=== PATIENT | female | born 1950 | race Caucasian/White ===

== ENCOUNTER 2019-10-30 09:36 | Outpatient (CLI) | payer MEDICARE, SELFPAY ==
--- NOTE | 2019-10-30 09:54 | FL_ITS ---
WS: [id number] Barium swallow and esophagram, 10/30/2019 Clinical Data: ASPIRATION INTO LOWER RESPIRATORY TRACT Comparison: None. Fluoroscopy time: 1.3 minutes. Findings: The patient swallowed the thick-thin barium, and it flowed through the hypopharynx without hesitation . There was osteoarthritic change at C5-C6 impinging onto the posterior hypopharyngeal surface. There is also minimal cricopharyngeal achalasia, but no aspiration or penetration occurred. The barium ent ered the esophagus and there was slow movement throughout. There was a small hiatal hernia with minim al reflux. No masses, polyps, stricture, ulcer or erosion could be seen. FL/FL barium swallow [id number] Impression: 1. Negative for aspiration or penetration. 2. Osteoarthritic change impinges on the posterior hypopharynx at C5-C6. 3. Minimal cricopharyngeal achalasia present. 4. Slow passage of barium from the hypopharynx through the esophagus. 5. Small hiatal hernia with minimal reflux.
== END 2019-10-30 09:37 | disposition home or self-care (01) ==
LOC: RAD 09:43
PROVIDERS: Family Provider Family Medicine; PCP Family Medicine; Visit Provider Internal Medicine Critical Care Medicine
DX: T17.800A Unspecified foreign body in other parts of respiratory tract causing asphyxiation, initial encounter (principal); X58.XXXA Exposure to other specified factors, initial encounter; K44.9 Diaphragmatic hernia without obstruction or gangrene
CPT/HCPCS: 74220

== ENCOUNTER → 2019-11-08 08:40 | Outpatient (BNVA) | payer MEDICARE, SELFPAY | PROVIDERS: Family Provider Family Medicine; PCP Nurse Practitioner Family; Referring Provider Nurse Practitioner Family; Visit Provider Specialist | DX: G25.0 Essential tremor (principal); F41.9 Anxiety disorder, unspecified; F32.9 Major depressive disorder, single episode, unspecified; F45.8 Other somatoform disorders | CPT/HCPCS: 99204 ==

== ENCOUNTER → 2019-11-20 13:39 | Outpatient (BNVA) | payer MEDICARE, SELFPAY | PROVIDERS: Family Provider Family Medicine; PCP Nurse Practitioner Family; Visit Provider Nurse Practitioner | DX: M54.5 Low back pain (principal); M53.3 Sacrococcygeal disorders, not elsewhere classified; Z79.891 Long term (current) use of opiate analgesic | CPT/HCPCS: 99214 ==

== ENCOUNTER 2019-11-26 11:00 | Outpatient (CLI) | payer MEDICARE, SELFPAY | END 2019-11-26 11:01 | disposition home or self-care (01) | LOC: SLEEP 11-28 09:21 | PROVIDERS: Family Provider Family Medicine; PCP Nurse Practitioner Family; Visit Provider Internal Medicine Critical Care Medicine | DX: J44.9 Chronic obstructive pulmonary disease, unspecified (principal) | CPT/HCPCS: 94762 ==

== ENCOUNTER 2019-11-26 13:02 | Outpatient (CLI) | payer MEDICARE, SELFPAY | END 2019-11-26 13:03 | disposition home or self-care (01) | PROVIDERS: Family Provider Family Medicine; PCP Nurse Practitioner Family; Visit Provider Internal Medicine Critical Care Medicine | DX: J44.9 Chronic obstructive pulmonary disease, unspecified (principal) | CPT/HCPCS: 94060; 94726; 94729; 94762; J7611 ==

== ENCOUNTER → 2020-03-05 13:50 | Outpatient (BNVA) | payer MEDICARE, SELFPAY | PROVIDERS: Family Provider Family Medicine; PCP Nurse Practitioner Family; Visit Provider Anesthesiology | DX: M54.41 Lumbago with sciatica, right side (principal); M54.42 Lumbago with sciatica, left side; F17.210 Nicotine dependence, cigarettes, uncomplicated; Z79.891 Long term (current) use of opiate analgesic; Z71.6 Tobacco abuse counseling | CPT/HCPCS: 99214 ==

== ENCOUNTER 2020-03-18 13:35 | Outpatient (CLI) | payer MEDICARE, SELFPAY ==
[2020-03-18 14:12] LABS: Basophils # 0.1 10^3/uL (0.0-0.1); Basophils % 0.6 %; Eosinophils # 0.3 10^3/uL (0.0-0.8); Hematocrit 42.5 % (37.0-47.0); Hemoglobin 12.8 g/dL (11.5-15.3); Lymphocytes # 2.7 10^3/uL (0.8-4.8); Lymphocytes % 24.8 %; Mean Corpuscular HGB Conc 30.1 g/dL (30.0-36.0); Mean Corpuscular Hemoglobin 27.8 pg (28.0-34.0); Mean Corpuscular Volume 92.4 fL (81-99); Monocytes # 1.2 10^3/uL (0.2-0.9); Monocytes % 11.2 %; Neutrophils # 6.3 10^3/uL (1.8-7.7); Neutrophils % 58.7 %; Nucleated Red Blood Cells % 0 %; Platelet Count 209 10^3/cmm (130-400); Red Cell Distribution Width 15.1 % (12.1-15.1); White Blood Count 10.8 10^3/uL (4.0-10.0)
[2020-03-18 14:27] LABS: Alanine Aminotransferase 19 U/L (0-33); Alkaline Phosphatase 79 IU/L (35-105); Aspartate Amino Transferase 18 U/L (0-32); Blood Urea Nitrogen 10 mg/dL (8-23); Calcium 9.3 mg/dL (8.5-10.5); Carbon Dioxide 32 mmol/L (22-29); Chloride 97 mmol/L (98-107); Globulin 2.6 g/dL (1.3-4.6); Glomerular Filtration Rate 122.3 mL/min (90-130); Glucose 83 mg/dL (65-115); Lactate Dehydrogenase 230 U/L (135-214); Osmolality Calculated 281 mOsm/kg (285-295); Sodium 138 mmol/L (136-145); Total Bilirubin 0.4 mg/dL (0.15-1.2); Total Protein 6.6 g/dL (6.6-8.7)
--- NOTE | 2020-03-18 17:15 | ONC FU_ITS ---
Dr. Carlson follow up note Patient: Sweta Fitzpatrick Unit #: [id number]: [id number] Dicatated By: Denis Carlson M.D.Date of Visit:Mar 18, 2020 Onc Med Follow-up/Prog Note History of Present Illness: Mrs. 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 As per patient her white blood count stay up mildly that led to special blood test which confirmed CLL. At the time of diagnosis on 04/04/2019 her CBC showed white blood count 10.8 hemoglobin 14.2 crit 44.0 platelets 259,000 neutrophil 65.7% lymphocytes 21.4%, patient also had serum light chain assay done on 04/04/2019 which showed free Light chain 2.06 normal being less than 1.94 and free lambda/kappa ratio 1.08, which is within normal range Prognostic profiling showed beta-2 microglobulin 2.01 IGVH mutated e.g. favorable ZAP/CD19 less than 10% e.g. favorable She still smokes about 1 pack a day Serum protein electrophoresis done on 04/04/2019 showed decreased albumin, slight restriction of protein migration in gamma region recommended immuno fixation electrophoresis Patient denies any night sweats, denies any peripheral lymphadenopathy, denies any weight loss but she has history of recurrent pulmonary infections, requiring hospitalization in the past. Came for follow-up, denies any specific complaints, no night sweats, no fever no chills, no weight loss, no peripheral lymphadenopathy, no abdominal fullness Medications: Advair Diskus 1 Puff(s) (of 500-50 mcg/dose) Aerosol Powder, Breath Activated Inhalation b.i.d., Atorvastatin Calcium 2 Tablet (of 40 mg) Oral daily, Atrovent 1 Puff(s) (of 0.03 %) Solution Nasal b.i.d., Breo Ellipta 1 Puff(s) (of 100-25 mcg/inh) Aerosol Powder, Breath Activated Inhalation daily, Breo Ellipta 1 (100-25 mcg/inh) Aerosol Powder, Breath Activated Inhalation PRN, Flonase 1 (50 mcg/act) Suspension Nasal PRN, Indapamide 1 Tablet (of 1.25 mg) Oral daily, Lyrica 1 Capsule (of 150 mg) Oral b.i.d., Nicotrol NS 1 - 2 spray(s) (of 10 mg/mL) Solution Nasal q 1 hour, Omeprazole 1 Capsule (of 20 mg) Capsule Delayed Release Oral daily, oxyCODONE HCl 1 Tablet (of 15 mg) Oral q 8 hours PRN, Primidone 1 Tablet (of 50 mg) Oral daily, Spiriva HandiHaler 1 (18 mcg) Capsule Inhalation daily, Zoloft 1 Tablet (of 50 mg) Oral b.i.d. Allergies: Aspirin, Codeine Sulfate, and Penicillins. Review of Systems: Constitutional - Appetite is good and weight is stable. No fever, chills, hot flashes, or night sweats. Energy is fair, ENMT - No sinus congestion/drainage. No mouth sores. No sore throat or difficulty swallowing, Hematologic/Lymphatic - Pt reports easy bruising, Respiratory - Positive for shortness of breath, Pt is on oxygen. No cough. No pleuritic pain or hemoptysis, Cardiovascular - No angina pain. No palpitations, Gastrointestinal - No nausea or vomiting. No heartburn or acid reflux. No diarrhea or constipation. No blood in the stool or black stools, Genitourinary (F) - No dysuria or hematuria. No urinary frequency. No urgency. Positive for incontinence, Musculoskeletal - Positive for joint pain, Neurologic - No headache or dizziness. No numbness/paresthesias or other focal neurologic symptoms, Psychiatric - Positive for anxiety and stress. Vital Signs: Performed on Mar 18, 2020 16:09 Height - 65.00 in Weight - 168.0 lbs (HIGH) BSA - 1.84 sq.m BMI - 27.96 Temperature - 97.3 F (LOW) Pulse - 82 /min Respiration - 24 /min BP - 140/64 mm(hg) O2 Sat - 96 % Pain - 8 Performance Status: 0 - Fully active, able to carry on all predisease activities without restrictions. (ECOG) Physical Examination: ENMT - No mouth sores, no thrush, no jaundice, Hematologic/Lymphatic - No peripheral lymphadenopathy, Respiratory - Lungs are clear, Cardiovascular - Regular rate and rhythm of heart, Abdomen - Soft, bowel sounds present, no organomegaly, Extremities - No visible edema or rash. Lab/Imaging: Most recent lab results are not available for this patient. 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 absolute lymphocyte count 2300 ?Abnormal serum protein electrophoresis COPD, on home oxygen Recurrent pulmonary infection requiring hospitalization on at least 3 occasions in the last one year Chronic smoking Plan: Discussed with patient regarding her labs white blood count 10.8 hemoglobin 12.8 hematocrit 42.5 platelets 209,000 CMP within normal limits LDH 230 Clinically, patient is doing well with no B symptoms, lab work-up within normal range with mild leukocytosis/lymphocytosis. On exam no evidence of peripheral lymphadenopathy or organomegaly. We will continue to monitor, she will return to clinic in 6 months with CBC CMP and LDH Signed By: Denis Carlson M.D. <<Signature on File>>
== END 2020-03-18 13:36 | disposition home or self-care (01) ==
LOC: ONCMED 13:38
PROVIDERS: PCP Nurse Practitioner Family; Visit Provider Internal Medicine Hematology & Oncology
DX: C91.10 Chronic lymphocytic leukemia of B-cell type not having achieved remission (principal); J44.9 Chronic obstructive pulmonary disease, unspecified; F17.200 Nicotine dependence, unspecified, uncomplicated; Z99.81 Dependence on supplemental oxygen; Z86.19 Personal history of other infectious and parasitic diseases
CPT/HCPCS: 80053; 83615; 85025; G0463

== ENCOUNTER 2020-03-19 20:00 | Outpatient (CLI) | payer MEDICARE, SELFPAY | END 2020-03-19 20:01 | disposition home or self-care (01) | LOC: SLEEP 03-20 08:21 | PROVIDERS: PCP Nurse Practitioner Family; Visit Provider Internal Medicine Critical Care Medicine | DX: G47.33 Obstructive sleep apnea (adult) (pediatric) (principal) | CPT/HCPCS: 95810 ==

== ENCOUNTER → 2020-05-21 13:18 | Outpatient (BNVA) | payer MEDICARE, SELFPAY | PROVIDERS: Family Provider Family Medicine; PCP Nurse Practitioner Family; Visit Provider Anesthesiology | DX: M54.42 Lumbago with sciatica, left side (principal); M54.41 Lumbago with sciatica, right side; Z98.1 Arthrodesis status; Z79.891 Long term (current) use of opiate analgesic | CPT/HCPCS: 99213; 99214 ==

== ENCOUNTER 2020-05-29 13:49 | Outpatient (CLI) | payer MEDICARE, SELFPAY ==
--- NOTE | 2020-05-29 14:15 | CT_ITS ---
WS: [id number] CT LUMBAR SPINE TECHNIQUE: Noncontrast CT of the lumbar spine with coronal and sagittal reformatted images. CLINICAL INFORMATION: back pain and prior fusion COMPARISON: CT 7 14,019 and myelogram 1 19,018 DLP: 1610.[address] scans at [facility] use at least one of these dose optimization techniques: automat ed exposure control; mA and/or kV adjustment per patient size (includes targeted exams where dose is matched to clinical indication); or iterative reconstruction. FINDINGS: Mild S-shaped lumbar curve. Anterior wedging with vertebroplasty changes T12. Prior postoperative marion nges pedicle screw fixation L4-5 with interbody fusion grafts. No evidence of hardware loosening. Vac uum disc phenomenon worse L5-S1. Vacuum disc phenomenon L1-2, L2-L3 and L3-L4. No acute appearing com pression fractures. No high-grade central canal stenosis. Alignment appears unchanged since 2019 L1-L2: Normal. L2-L3: Slight retrolisthesis L2 on L3. Mild central canal stenosis. Narrowing of the subarticular rec ess bilaterally. Mild bilateral foraminal narrowing. Mild facet arthropathy. L3-L4: Mild disc osteophytic ridging. Mild central canal stenosis. Moderate facet arthropathy. Mild l eft and no significant right foraminal narrowing. Impingement on the right subarticular recess. L4-L5: Postoperative changes pedicle screw fixation. Interbody fusion. Narrowing of the right subarti cular recess. Mild right and no significant left foraminal narrowing. Mild central canal stenosis. Pr ior left hemilaminectomy. Moderate facet arthropathy. L5-S1: Mild disc bulge with endplate ridging. Slight contact of the left S1 nerve root. Spinal canal is patent. Foramen are patent. Moderate facet arthropathy. Adrenal glands are normal. CT/CT lumbar spine wo con* [id number] IMPRESSION: 1. Mild lumbar curve. No acute compression. No high-grade central canal stenos is. 2. Chronic compression T12 vertebral body with vertebroplasty changes and ante rior wedging is unchanged. 3. Prior postoperative changes pedicle screw fixation L4-5 with interbody fusi on. No evidence of hardware loosening. 4. Mild central canal stenosis L2-L3, L3-L4 and L4-L5. 5. Mild bony foraminal narrowing worse at bilateral L2-3, bilateral L3-4 and r ight L4-5. Narrowing of the right L4-5 subarticular recess. 6. Prior left laminectomy L4-5. 7. Mild disc bulge L5-S1 with slight contact of the left S1 nerve root. 8. Moderate facet arthropathy L5-S1.
== END 2020-05-29 13:50 | disposition home or self-care (01) ==
LOC: RADWPI 13:55
PROVIDERS: Family Provider Nurse Practitioner Family; PCP Nurse Practitioner Family; Visit Provider Anesthesiology
DX: Z98.1 Arthrodesis status (principal); S22.080A Wedge compression fracture of T11-T12 vertebra, initial encounter for closed fracture; X58.XXXA Exposure to other specified factors, initial encounter; M48.061 Spinal stenosis, lumbar region without neurogenic claudication; M51.26 Other intervertebral disc displacement, lumbar region; M47.817 Spondylosis without myelopathy or radiculopathy, lumbosacral region; M96.1 Postlaminectomy syndrome, not elsewhere classified
CPT/HCPCS: 72131

== ENCOUNTER → 2020-06-16 14:18 | Outpatient (BNVA) | payer MEDICARE, SELFPAY | PROVIDERS: Family Provider Nurse Practitioner Family; PCP Nurse Practitioner Family; Visit Provider Specialist | DX: G25.0 Essential tremor (principal); F41.9 Anxiety disorder, unspecified; F32.9 Major depressive disorder, single episode, unspecified; J44.9 Chronic obstructive pulmonary disease, unspecified; Z98.1 Arthrodesis status; Z87.891 Personal history of nicotine dependence | CPT/HCPCS: 99214 ==

== ENCOUNTER → 2020-07-18 08:46 | Outpatient (BNVA) | payer MEDICARE, SELFPAY | PROVIDERS: Family Provider Family Medicine; PCP Nurse Practitioner Family; Visit Provider Anesthesiology | DX: M54.5 Low back pain (principal); Z98.1 Arthrodesis status; Z79.891 Long term (current) use of opiate analgesic | CPT/HCPCS: 99212; 99214 ==

== ENCOUNTER 2020-09-29 12:26 | Outpatient (CLI) | payer MEDICARE, SELFPAY ==
[2020-09-29 14:19] LABS: Basophils # 0.1 10^3/uL (0.0-0.1); Basophils % 0.6 %; Eosinophils % 0.2 %; Hematocrit 39.7 % (37.0-47.0); Hemoglobin 11.6 g/dL (11.5-15.3); Lymphocytes # 2.9 10^3/uL (0.8-4.8); Lymphocytes % 15.3 %; Mean Corpuscular HGB Conc 29.2 g/dL (30.0-36.0); Mean Corpuscular Hemoglobin 26.5 pg (28.0-34.0); Mean Corpuscular Volume 90.8 fL (81-99); Mean Platelet Volume 11.9 fL (7.4-10.4); Monocytes # 1.1 10^3/uL (0.2-0.9); Monocytes % 5.7 %; Neutrophils % 72.7 %; Nucleated Red Blood Cells % 0 %; Platelet Count 230 10^3/cmm (130-400); Red Blood Count 4.37 10^6/uL (4.1-5.3); Red Cell Distribution Width 15.9 % (12.1-15.1); White Blood Count 19.1 10^3/uL (4.0-10.0)
[2020-09-29 14:21] LABS: Alanine Aminotransferase 16 U/L (0-33); Albumin Level 3.4 g/dL (3.5-5.2); Alkaline Phosphatase 98 IU/L (35-105); Anion Gap 11.7 (5-19); Aspartate Amino Transferase 18 U/L (0-32); Blood Urea Nitrogen 14 mg/dL (8-23); Calcium 8.9 mg/dL (8.5-10.5); Carbon Dioxide 31 mmol/L (22-29); Chloride 99 mmol/L (98-107); Globulin 2.9 g/dL (1.3-4.6); Glomerular Filtration Rate 99.1 mL/min (90-130); Glucose 133 mg/dL (65-115); Lactate Dehydrogenase 207 U/L (135-214); Osmolality Calculated 286 mOsm/kg (285-295); Potassium 4.7 mmol/L (3.5-5.1); Sodium 137 mmol/L (136-145); Total Bilirubin 0.3 mg/dL (0.15-1.2); Total Protein 6.3 g/dL (6.6-8.7)
[2020-09-29 14:47] LABS: Slide Review Slide Review Perform
--- NOTE | 2020-09-29 17:13 | ONC FU_ITS ---
Dr. Carlson follow up note Patient: Sweta Fitzpatrick Unit #: [id number]: 1950 Dicatated By: Denis Carlson M.D.Date of Visit:Sep 29, 2020 Onc Med Follow-up/Prog Note History of Present Illness: Mrs. 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 As per patient her white blood count stay up mildly that led to special blood test which confirmed CLL. At the time of diagnosis on 04/04/2019 her CBC showed white blood count 10.8 hemoglobin 14.2 crit 44.0 platelets 259,000 neutrophil 65.7% lymphocytes 21.4%, patient also had serum light chain assay done on 04/04/2019 which showed free Light chain 2.06 normal being less than 1.94 and free lambda/kappa ratio 1.08, which is within normal range Prognostic profiling showed beta-2 microglobulin 2.01 IGVH mutated e.g. favorable ZAP/CD19 less than 10% e.g. favorable She still smokes about 1 pack a day Serum protein electrophoresis done on 04/04/2019 showed decreased albumin, slight restriction of protein migration in gamma region recommended immuno fixation electrophoresis Patient denies any night sweats, denies any peripheral lymphadenopathy, denies any weight loss but she has history of recurrent pulmonary infections, requiring hospitalization in the past. Came for follow-up, denies any specific complaints, no night sweats, no recurrent fever, no weight loss, no peripheral lymphadenopathy, no abdominal fullness, patient has underlying COPD for which she is on home oxygen and still smoking although trying to quit. Denies any jaundice denies any melena or hematochezia Medications: Advair Diskus 1 Puff(s) (of 500-50 mcg/dose) Aerosol Powder, Breath Activated Inhalation b.i.d., Atorvastatin Calcium 2 Tablet (of 40 mg) Oral daily, Atrovent 1 Puff(s) (of 0.03 %) Solution Nasal b.i.d., Breo Ellipta 1 Puff(s) (of 100-25 mcg/inh) Aerosol Powder, Breath Activated Inhalation daily, Breo Ellipta 1 (100-25 mcg/inh) Aerosol Powder, Breath Activated Inhalation PRN, Doxycycline Hyclate (100 mg) Capsule Oral b.i.d. for 14 days, Flonase 1 (50 mcg/act) Suspension Nasal PRN, Indapamide 1 Tablet (of 1.25 mg) Oral daily, Lyrica 1 Capsule (of 150 mg) Oral b.i.d., Nicotrol NS 1 - 2 spray(s) (of 10 mg/mL) Solution Nasal q 1 hour, Omeprazole 1 Capsule (of 20 mg) Capsule Delayed Release Oral daily, oxyCODONE HCl 1 Tablet (of 15 mg) Oral q 8 hours PRN, Primidone 1 Tablet (of 50 mg) Oral daily, Spiriva HandiHaler 1 (18 mcg) Capsule Inhalation daily, Zoloft 1 Tablet (of 50 mg) Oral b.i.d. Allergies: Aspirin, Codeine Sulfate, and Penicillins. Review of Systems: Constitutional - Appetite is good and weight is stable. No fever, chills, hot flashes, or night sweats. Energy is fair, ENMT - No sinus congestion/drainage. No mouth sores. No sore throat or difficulty swallowing, Hematologic/Lymphatic - Pt reports easy bruising, Respiratory - Positive for shortness of breath, Pt is on oxygen. No cough. No pleuritic pain or hemoptysis, Cardiovascular - No angina pain. No palpitations, Gastrointestinal - No nausea or vomiting. No heartburn or acid reflux. No diarrhea or constipation. No blood in the stool or black stools, Genitourinary (F) - No dysuria or hematuria. No urinary frequency. No urgency. Positive for incontinence, Musculoskeletal - Positive for joint pain, Neurologic - No headache or dizziness. No numbness/paresthesias or other focal neurologic symptoms, Psychiatric - Positive for anxiety and stress. Vital Signs: Vitals are not available for this patient. Performance Status: 1 - No physically strenuous activity, but ambulatory and able to carry out light or sedentary work (e.g. office work, light house work). (ECOG) Physical Examination: ENMT - No mouth sores, no jaundice, no thrush, Respiratory - Poor air entry, bilateral mild wheezing, Cardiovascular - Regular rate and rhythm of heart, Abdomen - Soft, bowel sounds present, Extremities - No visible edema. Lab/Imaging: Most recent lab results are not available for this patient. 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 absolute lymphocyte count 2300 ?Abnormal serum protein electrophoresis COPD, on home oxygen Recurrent pulmonary infection requiring hospitalization on at least 3 occasions in the last one year Chronic smoking Plan: Discussed with patient regarding her labs white blood count 19.1 hemoglobin 11.6 compared to 12.8 g on March 18, 2020, platelets 230,000 CMP within normal limits except glucose 133 and LDH is 207 Clinically, patient doing well with no B symptoms suggestive of disease progression, no peripheral lymphadenopathy. Lab work-up leukocytosis/neutrophilia but stable lymphocytes count so leukocytosis could be due to smoking or underlying bronchitis or subacute clinical infection but patient denies any fever denies any sore throat or dysuria. As far as CLL is concerned, there is no evidence of disease progression although CBC shows increased total white blood cell but mainly neutrophils rather than lymphocytes. Patient was advised to quit smoking and was offered any assistance she may need, patient is trying. And patient was advised in case she has any evidence of fever or any new symptoms she need to call us or her PMD for evaluation otherwise she will return to clinic in 6 months with CBC CMP and LDH Signed By: Denis Carlson M.D. <<Signature on File>>
== END 2020-09-29 12:27 | disposition home or self-care (01) ==
LOC: ONCMED 12:29
PROVIDERS: PCP Nurse Practitioner Family; Visit Provider Internal Medicine Hematology & Oncology
DX: C91.10 Chronic lymphocytic leukemia of B-cell type not having achieved remission (principal); J44.9 Chronic obstructive pulmonary disease, unspecified; F17.200 Nicotine dependence, unspecified, uncomplicated; Z99.81 Dependence on supplemental oxygen; Z86.19 Personal history of other infectious and parasitic diseases
CPT/HCPCS: 36415; 80053; 83615; 85025; G0463

== ENCOUNTER → 2020-10-03 12:47 | Outpatient (BNVA) | payer MEDICARE, SELFPAY | PROVIDERS: PCP Nurse Practitioner Family; Visit Provider Nurse Practitioner | DX: M47.816 Spondylosis without myelopathy or radiculopathy, lumbar region (principal); M17.0 Bilateral primary osteoarthritis of knee; F17.200 Nicotine dependence, unspecified, uncomplicated; Z79.891 Long term (current) use of opiate analgesic | CPT/HCPCS: 99215 ==

== ENCOUNTER → 2020-11-28 12:49 | Outpatient (BNVA) | payer MEDICARE, SELFPAY | PROVIDERS: PCP Nurse Practitioner Family; Visit Provider Nurse Practitioner | DX: M47.816 Spondylosis without myelopathy or radiculopathy, lumbar region (principal); M17.11 Unilateral primary osteoarthritis, right knee; Z98.1 Arthrodesis status; Z79.891 Long term (current) use of opiate analgesic | CPT/HCPCS: 99213 ==

== ENCOUNTER → 2020-12-19 13:36 | Outpatient (BNVA) | payer MEDICARE, SELFPAY | PROVIDERS: PCP Nurse Practitioner Family; Visit Provider Surgery | DX: K92.1 Melena (principal); Z20.822 Contact with and (suspected) exposure to COVID-19 | CPT/HCPCS: 87635 ==

== ENCOUNTER 2020-12-24 06:37 | Day surgery (SDC) | payer MEDICARE, SELFPAY ==
[2020-12-22 12:54] VITALS: BMI 39.6
--- NOTE | 2020-12-24 06:49 | ANES.PREANE2 ---
Pre-Anesthetic Assessment Pre-Anesthetic Assessment: Height/Weight: Height 1.65 m Weight 107.955 kg Preop Diagnosis: blood in stool Proposed Procedure: Operation Date: 12/24/20 08:15 Proposed Procedures p Colonoscopy 58575 K92.1(Not Applicable) - Danny Juan MD Familial anesthetic complications: none Was Beta Edgar taken within 24 hours: N/A Was Clonidine taken within 24 hours: N/A Last intake: >8 hrs Social: Comment: former smoker Exam: Pre-Anes Outpt Exam: alert, oriented x 3, clear to auscultation bilaterally and regular rate & rhythm Airway: Cervical ROM: WNL MP: 4 Dentition: False Pulmonary: Pulmonary: COPD (5 L NC) Metabolic: Metabolic: Morbid obesity Musc/skel: Musc/skel: Lower Back Pain Neuropsych: Neuropsych: Anxiety (causes O2 desaturations) and 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) Anesthetic Plan: ASA status: 4 Anesthesia: MAC Risk of > 500 ml blood loss (7ml/kg in children): No PFSH Anesthesia PFSH: Medical History Acute cystitis without hematuria Bulging lumbar disc COPD (chronic obstructive pulmonary disease) Encounter for long-term opiate analgesic use Fibromyalgia Hip pain, right Hypermobility of urethra Low back pain of over 3 months duration Lumbar post-laminectomy syndrome Opioid contract exists Sacro-iliac pain Spinal stenosis of lumbar region with radiculopathy Spondylosis without myelopathy or radiculopathy, lumbar region Traumatic compression fracture of twelfth thoracic vertebra Urinary bladder incontinence Surgical History H/O eye surgery Macular Pucker History of appendectomy History of hysterectomy History of lumbar fusion History of lumbar fusion Hx of cataract surgery Hx of kyphoplasty w/Dr Martinez 2015 T 12 Family History Mother , Age 81 Heart disease Father , In his 80's [employer] to Bone Cancer Cancer Other CAD (coronary artery disease) Stroke Denies family history of Diabetes Hypertension Social History Smoking and tobacco status: former smoker Quit status (tobacco): has quit using tobacco Year quit tobacco: 2019 - PPD x 56 Years Second hand smoke exposure: No Alcohol intake: never Lives independently: Yes Household members: family Marital status: / Current occupational status: retired History of recent travel: No Current gender identity: Female Data Anesthesia Cardiac Studies: No Data to Display
[2020-12-24 07:25] VITALS: BP 155/79; PULSE 88; RESP 18; TEMP 36.7; O2SAT 93
[2020-12-24] MEDS: sodium chloride 0.9% 1,000 ML 30 ML IV (07:31)
[2020-12-24 07:45] VITALS: PULSE 79; RESP 16; O2SAT 96
[2020-12-24] MEDS: ipratropium-albuterol 3 mL Neb INHALATION (07:50)
[2020-12-24 07:54] VITALS: PULSE 76
--- NOTE | 2020-12-24 08:34 | W.PM.OPSUD ---
Surgery/Procedure H&P Update DATE OF PROCEDURE: December 24, 2020 DATE H&P PERFORMED: 12/04/20 H&P UPDATE INFORMATION: I have reviewed H&P completed within last 30 days, I have examined patient prior to procedure and No changes to prior documentation PREOP DIAGNOSIS: Bleeding per rectum PRIMARY INDICATION FOR PROCEDURE: The same PLANNED PROCEDURE: Operation Date: 12/24/20 08:15 Proposed Procedures p Colonoscopy 65142 K92.1(Not Applicable) - Danny Juan MD
[2020-12-24 10:02] VITALS: BP 164/100; PULSE 78; RESP 20; TEMP 36.3; O2SAT 96
--- NOTE | 2020-12-24 10:06 | ANE.PACU2 ---
Inpatient post-anesthesia follow up: Airway intact: Yes Vital signs: Temperature 97.4 F Pulse Rate 78 Respiratory Rate 20 Blood Pressure 164/100 Pulse Oximetry 96 Oxygen Delivery Me thod Nasal Cannula Oxygen Flow Rate 5 Fraction of Inspir ed Oxygen Hydration adequate: Yes Nausea and vomiting: No Pain level: 1 Mental status: Baseline
[2020-12-24 10:19] VITALS: BP 149/94; PULSE 74; RESP 18; O2SAT 96
== END 2020-12-24 10:25 | disposition home or self-care (01) ==
PROVIDERS: PCP Nurse Practitioner Family; Visit Provider Surgery
PROC: 0DJD8ZZ Inspection of Lower Intestinal Tract, Via Natural or Artificial Opening Endoscopic (ICD-10-PCS; CPT 45378; principal; 2020-12-24 08:15)
DX: K92.1 Melena (principal); D12.5 Benign neoplasm of sigmoid colon; Z87.891 Personal history of nicotine dependence; J44.9 Chronic obstructive pulmonary disease, unspecified; Z99.81 Dependence on supplemental oxygen; E66.01 Morbid (severe) obesity due to excess calories; Z68.39 Body mass index [BMI] 39.0-39.9, adult; F41.9 Anxiety disorder, unspecified; Z79.891 Long term (current) use of opiate analgesic; Z82.49 Family history of ischemic heart disease and other diseases of the circulatory system
CPT/HCPCS: 45380; 88305; 94640; 96360; 96361; J2704; J7030

== ENCOUNTER 2021-01-09 13:55 | Outpatient (CLI) | payer MEDICARE, SELFPAY ==
--- NOTE | 2021-01-09 14:07 | XR_ITS ---
WS: [id number] Chest 2 views, 01/09/2021 Clinical Data: COPD EXACERBATION Comparison: Portable chest, 08/15/2019. Findings: No nodules, masses or effusions are seen. The heart is normal. The pulmonary vascularity is not increased. No pneumonia or pneumothorax is seen. The aortic arch and descending aorta show calci fication and tortuosity. The diaphragms are flattened. Minimal atelectatic changes are present over t he surface of both diaphragms. There is vertebroplasty material in a lower thoracic vertebral body. XR/XR chest 2V* [id number] Impression: Atherosclerosis and hyperinflation.
== END 2021-01-09 13:56 | disposition home or self-care (01) ==
PROVIDERS: PCP Nurse Practitioner Family
DX: J44.1 Chronic obstructive pulmonary disease with (acute) exacerbation (principal); I70.90 Unspecified atherosclerosis
CPT/HCPCS: 71046

== ENCOUNTER 2021-01-20 11:26 | Observation (INO) | payer MEDICARE, SELFPAY ==
[2021-01-20] VITALS (18 sets, daily range): BP systolic 103–173; BP diastolic 57–96; PULSE 76–98; RESP 16–26; TEMP 36.7–37.1; O2SAT 92–100; BMI 40.1
--- NOTE | 2021-01-20 11:49 | XR_ITS ---
WS: [id number] Exam: XR chest 1V portable [id number] Date/Time of Exam: 01/20/2021 12:00 PM Reason For Exam: dyspnea/cough Comparison 01/09/2021. The lungs are hyperinflated and clear. Normal cardiomediastinal structures and regional bony elements . Monitoring leads superimpose the chest. XR/XR chest 1V portable [id number] IMPRESSION: 1. Pulmonary hyperinflation. No acute process.
--- NOTE | 2021-01-20 11:59 | W.ED.SOB ---
HPI - SOB/Dyspnea General: Chief Complaint: Shortness of Breath/Dyspnea Stated Complaint: SOB, UPPER ABDOMEN PAIN Time Seen by Provider: 01/20/21 11:39 History of Present Illness: HPI Narrative: 70-year-old female presents emergency room complaining of cough and shortness of breath. Is been going on for about the last 4 days with the last 2 days got markedly worse. She has severe COPD and is chronically on 5 L by nasal cannula. She still has a productive cough with her baseline sputum production. Anosmia she has not had any diarrhea no fever. She has been using albuterol rescue treatments with minimal relief of symptoms. She relates some chest discomfort but more in the upper epigastric area radiating into her back. She denies any fever sweats chills vomiting or diarrhea. MD elicited complaint: shortness of breath, cough and pain with inspiration Pertinent past history: COPD Onset (ago): day(s) Context: occurred during exertion Timing: constant Severity: severe Exacerbating factors: exertion, coughing and inspiration Relieving factors: oxygen and rest Known history of: COPD Associated symptoms: Reports abdominal pain, chest congestion and cough; Deny chest pain, diaphoresis, dizziness, extremity pain, fever(s), hemoptysis, lightheadedness, myalgias, nausea, orthopnea, palpitations, paresthesias, polydipsia, polyuria, rash, sense of impending doom, syncope or vomiting Treatment prior to arrival: oxygen and bronchodilator Review of Systems Const: Denies: fever(s) or diaphoresis ENMT: Denies: throat pain, ear or mastoid pain, nasal discharge or nasal congestion Card: Denies: chest pain, palpitations, lightheadedness, syncope or orthopnea Resp: Reports: chest congestion; Denies: hemoptysis GI: Reports: abdominal pain; Denies: nausea or vomiting : Denies: flank pain, difficulty voiding, dysuria, urinary frequency or urinary urgency Musc: Denies: extremity pain Skin/Breast: Denies: rash or pruritus Neuro: Denies: dizziness Endo: Denies: polyuria or polydipsia [facility] PFSH: Medical History Acute cystitis without hematuria Blood in stool Bulging lumbar disc Colon polyp COPD (chronic obstructive pulmonary disease) Encounter for long-term opiate analgesic use Fibromyalgia Hip pain, right Hypermobility of urethra Low back pain of over 3 months duration Lumbar post-laminectomy syndrome Opioid contract exists Sacro-iliac pain Spinal stenosis of lumbar region with radiculopathy Spondylosis without myelopathy or radiculopathy, lumbar region Traumatic compression fracture of twelfth thoracic vertebra Urinary bladder incontinence Surgical History H/O eye surgery Macular Pucker History of appendectomy History of hysterectomy History of lumbar fusion History of lumbar fusion Hx of cataract surgery Hx of kyphoplasty w/Dr Maritnez 2015 T 12 Family History Mother , Age 81 Heart disease Father , In his 80's GOLD LAYER to Bone Cancer Cancer Other CAD (coronary artery disease) Stroke Denies family history of Diabetes Hypertension Social History Smoking and tobacco status: former smoker Quit status (tobacco): has quit using tobacco Year quit tobacco: 2019 PPD x 56 Years Second hand smoke exposure: No Alcohol intake: never Lives independently: Yes Household members: family Marital status: / Current occupational status: retired History of recent travel: No Current gender identity: Female Physical Exam Const: COMMON NORMALS: no acute distress GENERAL APPEARANCE: cooperative and comfortable ORIENTATION/CONSCIOUSNESS: Yes awake, Yes oriented to person, Yes oriented to place and Yes oriented to time HENMT: COMMON NORMALS: normocephalic, atraumatic and hearing grossly normal bilaterally HEAD & SCALP: normocephalic and atraumatic Neck/C-Spine: COMMON NORMALS: no JVD Resp: COMMON NORMALS: normal respiratory effort, No retractions, No use of accessory muscles and clear to auscultation bilaterally AUSCULTATION: clear to auscultation bilaterally Cardio: COMMON NORMALS: no JVD, regular rate, regular rhythm and No murmurs present (Cardio) RATE: regular rate RHYTHM: regular rhythm GI: COMMON NORMALS: No hepatosplenomegaly present AUSCULTATION: Yes normoactive bowel sounds PALPATION: Yes Tenderness to palpation present (GI) (Epigastric), No Guarding due to palpation present (GI) and Yes No hepatosplenomegaly present Extremity: COMMON NORMALS: normal to inspection, capillary refill normal, no clubbing, cyanosis or edema, no calf tenderness and no pedal edema Neuro: SENSORIUM/ORIENTATION: Yes oriented to person, Yes oriented to place and Yes oriented to time Skin: COMMON NORMALS: no rashes or lesions noted GENERAL SKIN EXAM: no rashes or lesions noted Course Vital Signs: Vital signs: Vital Signs Temperature 98.0 F 01/21/21 03:53 Pulse Rate 89 01/21/21 03:53 Respiratory Rate 17 01/21/21 03:53 Blood Pressure 115/78 01/21/21 03:53 Pulse Oximetry 92 01/21/21 03:53 MDM - SOB/Dyspnea MDM Narrative: Medical decision making narrative: Observation for acute exacerbation of COPD and abdominal pain. Lab Data: Labs: Lab Results 01/20/21 01/20/21 01/20/21 Range/Units 11:58 11:58 11:58 WBC 14.9 H (4.0-10.0) 10^3/ uL RBC 4.05 L (4.1-5.3) 10^6/u L Hgb 9.6 L (11.5-15.3) g/dL Hct 32.9 L (37.0-47.0) % MCV 81.2 (81-99) fL MCH 23.7 L (28.0-34.0) pg MCHC 29.2 L (30.0-36.0) g/dL RDW 16.5 H (12.1-15.1) % Plt Count 268 (130-400) 10^3/c mm MPV 10.8 H (7.4-10.4) fL Neut % (Auto) 60.5 % Lymph % (Auto) 23.9 % [place] % (Auto) 7.9 % Eos % (Auto) 5.5 % Baso % (Auto) 0.7 % Neut # (Auto) 9.04 H (1.8-7.7) 10^3/u L Lymph # (Auto) 3.6 (0.8-4.8) 10^3/u L [place] # (Auto) 1.2 H (0.2-0.9) 10^3/u L Eos # (Auto) 0.8 (0.0-0.8) 10^3/u L Baso # (Auto) 0.1 (0.0-0.1) 10^3/u L Nucleated RBC % (a uto) 0 % Nucleated RBCs # 0.0 /100WBC Specimen Type Sample Site ABG pH (7.35-7.45) ABG pCO2 (35-45) mmHg ABG pO2 (80.0-100.0) mmH g ABG HCO3 (22-26) mmol/L ABG O2 Saturation ABG Base Excess (-2.0-2.0) mmol/ L Brian Test A-a O2 Gradient Hematocrit (37-47) % Hgb O2 Saturation (95-100) % Carboxyhemoglobin (0.4-20.1) %THgb Methemoglobin (0.4-1.5) % Total Hemoglobin (12-16) g/dL Ionized Calcium (1.1-1.4) mmol/L O2 Delivery Device O2 Liters/Min % Cardiopulmonary Physical Therapist ID Sodium 135 L (136-145) mmol/L Potassium 4.3 (3.5-5.1) mmol/L Chloride 97 L (98-107) mmol/L Carbon Dioxide 29 (22-29) mmol/L Anion Gap 13.3 (5-19) BUN 12 (8-23) mg/dL Creatinine 0.7 (0.5-0.9) mg/dL GFR Calculation 82.7 L (90-130) mL/min Glucose 97 (65-115) mg/dL Calculated Osmolal ity 280 L (285-295) mOsm/k g Calcium 8.4 L (8.5-10.5) mg/dL Total Bilirubin 0.3 (0.15-1.2) mg/dL GGT (5-36) U/L AST 19 (0-32) U/L ALT 12 (0-33) U/L Alkaline Phosphata se 114 H (35-105) IU/L Troponin T Baselin e 12 H (0-10) ng/L Total Protein 6.8 (6.6-8.7) g/dL Albumin 3.7 (3.5-5.2) g/dL Globulin 3.1 (1.3-4.6) g/dL 01/20/21 01/20/21 Range/Units 11:58 12:01 WBC (4.0-10.0) 10^3/ uL RBC (4.1-5.3) 10^6/u L Hgb (11.5-15.3) g/dL Hct (37.0-47.0) % MCV (81-99) fL MCH (28.0-34.0) pg MCHC (30.0-36.0) g/dL RDW (12.1-15.1) % Plt Count (130-400) 10^3/c mm MPV (7.4-10.4) fL Neut % (Auto) % Lymph % (Auto) % [place] % (Auto) % Eos % (Auto) % Baso % (Auto) % Neut # (Auto) (1.8-7.7) 10^3/u L Lymph # (Auto) (0.8-4.8) 10^3/u L [place] # (Auto) (0.2-0.9) 10^3/u L Eos # (Auto) (0.0-0.8) 10^3/u L Baso # (Auto) (0.0-0.1) 10^3/u L Nucleated RBC % (a uto) % Nucleated RBCs # /100WBC Specimen Type Arterial Sample Site Radial, left ABG pH 7.37 (7.35-7.45) ABG pCO2 54.6 H (35-45) mmHg ABG pO2 88.5 (80.0-100.0) mmH g ABG HCO3 31.4 H (22-26) mmol/L ABG O2 Saturation 96.8 ABG Base Excess 5.1 H (-2.0-2.0) mmol/ L Brian Test Pos A-a O2 Gradient Not Reportable Hematocrit 30.9 L (37-47) % Hgb O2 Saturation 95.0 (95-100) % Carboxyhemoglobin 1.0 (0.4-20.1) %THgb Methemoglobin 0.9 (0.4-1.5) % Total Hemoglobin 10.1 L (12-16) g/dL Ionized Calcium 1.2 (1.1-1.4) mmol/L O2 Delivery Device Nc O2 Liters/Min 5.0 % Cardiopulmonary Physical Therapist ID Cak Sodium 137.0 (136-145) mmol/L Potassium 4.1 (3.5-5.1) mmol/L Chloride (98-107) mmol/L Carbon Dioxide (22-29) mmol/L Anion Gap (5-19) BUN (8-23) mg/dL Creatinine (0.5-0.9) mg/dL GFR Calculation (90-130) mL/min Glucose 100.0 (65-115) mg/dL Calculated Osmolal ity (285-295) mOsm/k g Calcium (8.5-10.5) mg/dL Total Bilirubin (0.15-1.2) mg/dL GGT 35 (5-36) U/L AST (0-32) U/L ALT (0-33) U/L Alkaline Phosphata se (35-105) IU/L Troponin T Baselin e (0-10) ng/L Total Protein (6.6-8.7) g/dL Albumin (3.5-5.2) g/dL Globulin (1.3-4.6) g/dL Discharge Plan Discharge Patient Disposition: Admitted As Inpatient Admit Provider: Sukh Enriquez Clinical Impression: Chronic respiratory failure with hypoxia and hypercapnia, COPD exacerbation, Upper abdominal pain Condition: Stable Coding Level of Care Code ED Copying Machine Repairer for Chg Fwd Exam Comprehensive
[2021-01-20 12:13] LABS: ABG PCO2 54.6 mmHg (35-45); ABG PH Result 7.37 (7.35-7.45); Arterial Blood Gas Hematocrit 30.9 % (37-47); Base Excess ABG 5.1 mmol/L (-2.0-2.0); Blood Gas Allen Test Pos; Blood Gas Operator Identificat CAK; Blood Gas Sample Site Radial, left; Blood Gas Sample Type Arterial; HCO3 ABG 31.4 mmol/L (22-26); Ionized Calcium Level - ABG 1.2 mmol/L (1.1-1.4); Methemoglobin 0.9 % (0.4-1.5); Oxygen Device NC; Oxygen Saturation ABG 96.8; PO2 ABG 88.5 mmHg (80.0-100.0); Potassium Level - ABG 4.1 mmol/L (3.5-5.0); Total Hemoglobin 10.1 g/dL (12-16)
--- NOTE | 2021-01-20 12:14 | PC.NURSE ---
XR at bedside
[2021-01-20 12:19] LABS: Basophils # 0.1 10^3/uL (0.0-0.1); Basophils % 0.7 %; Eosinophils # 0.8 10^3/uL (0.0-0.8); Eosinophils % 5.5 %; Hematocrit 32.9 % (37.0-47.0); Hemoglobin 9.6 g/dL (11.5-15.3); Lymphocytes # 3.6 10^3/uL (0.8-4.8); Lymphocytes % 23.9 %; Mean Corpuscular HGB Conc 29.2 g/dL (30.0-36.0); Mean Corpuscular Hemoglobin 23.7 pg (28.0-34.0); Mean Corpuscular Volume 81.2 fL (81-99); Mean Platelet Volume 10.8 fL (7.4-10.4); Monocytes # 1.2 10^3/uL (0.2-0.9); Monocytes % 7.9 %; Neutrophils # 9.04 10^3/uL (1.8-7.7); Neutrophils % 60.5 %; Nucleated Red Blood Cells % 0 %; Platelet Count 268 10^3/cmm (130-400); Red Blood Count 4.05 10^6/uL (4.1-5.3); Red Cell Distribution Width 16.5 % (12.1-15.1); White Blood Count 14.9 10^3/uL (4.0-10.0)
[2021-01-20 12:27] LABS: Alanine Aminotransferase 12 U/L (0-33); Albumin Level 3.7 g/dL (3.5-5.2); Alkaline Phosphatase 114 IU/L (35-105); Anion Gap 13.3 (5-19); Aspartate Amino Transferase 19 U/L (0-32); Blood Urea Nitrogen 12 mg/dL (8-23); Calcium 8.4 mg/dL (8.5-10.5); Carbon Dioxide 29 mmol/L (22-29); Chloride 97 mmol/L (98-107); Globulin 3.1 g/dL (1.3-4.6); Glomerular Filtration Rate 82.7 mL/min (90-130); Glucose 97 mg/dL (65-115); Osmolality Calculated 280 mOsm/kg (285-295); Potassium 4.3 mmol/L (3.5-5.1); Sodium 135 mmol/L (136-145); Total Bilirubin 0.3 mg/dL (0.15-1.2); Total Protein 6.8 g/dL (6.6-8.7)
--- NOTE | 2021-01-20 14:05 | ECG_ITS ---
[facility] Test Date: 2021-01-20 Pat Name: Sweta Rivera Department: Room: Gender: Female Piling Setter: : 1950 Requested By: Devon Chaparro Order Number: [id number] Reading MD: Irma Burks M.D. Measurements Intervals [place] Rate: 82 P: 52 MA: 168 QRS: 23 QRSD: 87 T: 50 QT: 358 QTc: 420 Interpretive Statements SINUS RHYTHM Compared to ECG 08/15/2019 12:33:23 T-wave abnormality no longer present Possible ischemia no longer present Electronically Signed On 01-20-2021 17:28:48 CDT by Irma Burks M.D. [email or web address].[employer]/store/NU/[id number] f
--- NOTE | 2021-01-20 14:06 | CTR_ITS ---
PROCEDURE INFORMATION: Exam: CT Abdomen And Pelvis With Contrast Exam date and time: 01/20/2021 2:10 PM Age: 70 years old Clinical indication: Abdominal pain; Generalized; Prior surgery; Surgery type: Back, hyst; Additional info: Abd pain TECHNIQUE: Imaging protocol: Computed tomography of the abdomen and pelvis with contrast. Total images: 259 Radiation optimization: All CT scans at this facility use at least one of these dose optimization techniques: automated exposure control; mA and/or kV adjustment per patient size (includes targeted exams where dose is matched to clinical indication); or iterative reconstruction. Contrast material: OMNI 300; Contrast volume: 95 ml; Contrast route: INTRAVENOUS (IV); COMPARISON: MRI Hip w/o RIGHT [id number] 04/19/2017 3:49 PM RADIATION DOSE METRICS: Total DLP (mGy-cm): 1574.37 FINDINGS: Lungs: Limited assessment of the lung bases fails to reveal evidence for active cardiopulmonary process. COPD/chronic bronchitis. Minimal subsegmental atelectasis left lower lobe periaortic space. Liver: No visible hepatic mass or cystic structure. Gallbladder and bile ducts: Unremarkable. No calcified stones. No ductal dilation. Pancreas: Pancreas unremarkable for age. No visible pancreatic ductal ectasia. Spleen: Normal. No splenomegaly. Adrenal glands: Adrenal glands unremarkable. Kidneys and ureters: No hydronephrosis or perinephric fluid. No visible nephrolithiasis. No visible ureterolithiasis. Stomach and bowel: Assessment of the hollow viscus fails to reveal evidence of active or acute pathology. Nonobstructed bowel pattern. No visible acute diverticulitis. No visible adynamic or reactive ileus. Appendix: The appendix is not visualized presumed surgically absent. Intraperitoneal space: No visible evidence of mesenteric lymphadenitis or active mesenteritis/panniculitis. No visible pneumoperitoneum or intraperitoneal ascites. Vasculature: The abdominal aorta is nonaneurysmal. Moderately advanced arterial sclerotic disease. Lymph nodes: No current visible evidence of active mesenteric or retroperitoneal lymphadenopathy. Urinary bladder: Urinary bladder unremarkable. Reproductive: Status post hysterectomy. Bones/joints: No visible active or acute osseous pathology. Inter pedicle screw and side bar fixation L4 and L5. Degenerative disease and degenerative disc disease of the spine. Previous vertebroplasty T12. Osteopenia. Mild scoliotic curvature. Soft tissues: Unremarkable. Other findings: Obesity. CT/CT abdomen pelvis w con* [id number] IMPRESSION: Currently no visible evidence for acute abdominal or pelvic pathologic process. Radiation Dose CTDIVOL = (mGy): DLP = 1574.37 (mGy-cm)
--- NOTE | 2021-01-20 14:20 | PC.NURSE ---
Bedside guiaic done by Dr Og with Estefany Alford, TOMAS at bedside to pecan sheller.
[2021-01-20 14:52] LABS: Add Urine Microscopic? YES; Bilirubin Urine 1+ (Negative); Blood Urine Neg (Negative); Glucose Urine UA Norm (Normal); Ketones Urine Negative (Negative); Leukocyte Esterase Urine Negative (Negative); Nitrate Urine Negative (Negative); Protein Urine Neg (Negative); SARS Covid-2 Antigen Negative (Negative); Specific Gravity, Urine 1.015 (1.005-1.030); Urine Appearance Hazy (CLEAR); Urine Color Dark Yellow (Yellow); Urobilinogen Urine Norm (Negative); pH Urine 5 (5-7)
[2021-01-20 14:52] LABS: Troponin(5th) Baseline 12 ng/L (0-10)
[2021-01-20] MEDS: iohexol 300 mg/mL 100 mL Btl IV (15:02)
[2021-01-20 15:05] LABS: Add Urine Culture? No; Bacteria Urine 1+ /hpf; Hyaline Casts Urine 15-25 /lpf; Mucus Urine 2+ /hpf; WBC Urine 0-4 /hpf (0-5)
--- NOTE | 2021-01-20 15:26 | PC.NURSE ---
Attempted to call report to floor, nurse requested to call back d/t physician needing nurse to do something.
[2021-01-20 15:43] LABS: Troponin 5 2HR 9.81 ng/L (0-10)
[2021-01-20 15:44] LABS: Troponin 5 2HR Delta -2.19 ABS# (0-10)
--- NOTE | 2021-01-20 16:05 | ECG_ITS ---
[facility] ED Test Date: 2021-01-20 Pat Name: Sweta Rivera Department: Room: 256 Gender: Female Heel Edge Inker Machine: : 1950 Requested By: Devon Chaparro Order Number: [id number] Gissell MD: Irma Burks M.D. Measurements Intervals [place] Rate: 84 P: 66 [place]: 186 QRS: 0 QRSD: 98 T: 42 QT: 372 QTc: 441 Interpretive Statements SINUS RHYTHM Compared to ECG 01/20/2021 11:44:15 No significant changes Electronically Signed On 01-20-2021 21:26:39 CDT by Irma Burks M.D. [email or web address] [email or web address].[email or web address]/store/NU/[id number] f
[2021-01-20] MEDS: morphine 4 mg/mL SDV 1 mL 2 MG IVP (16:30)
--- NOTE | 2021-01-20 17:06 | PC.NURSE ---
[address] Enriquez that patient has arrived on unit.
--- NOTE | 2021-01-20 17:33 | P.HP_ITS ---
Providers/Chief Complaint Admitting Physician: Sukh Enriquez Primary Care Provider: Karuna Hanna NP Chief Complaint: SOB, UPPER ABDOMEN PAIN History of Present Illness 70-year-old lady with history of COPD, on chronic 4 L of oxygenWith, following with pulmonology, presented to ER due to several complaints including shortness of breath, cough productive of white sputum, worsening over several days, as well as pain in a bandlike distribution at upper abdomen/lower chest under her breasts, more so on the right side, worse with moving, coughing, taking deep breaths or pushing on right upper belly or right flank. She reports prior to this had been in baseline state of health. States she has been eating well, without any alternation in appetite and no symptoms after eating. Has been having normal bowel movements. Reports has had an uneventful colonoscopy 2 weeks ago. Denies back pain. Denies recent injury. Denies any hemoptysis. Denies any unilateral swelling. Denies having orthopnea. In ER she is afebrile, heart rates mostly in the 80s, without tachypnea. With neutrophilic leukocytosis 14.9. Hemoglobin 9.6. Platelet count 268. Sodium 135. Potassium 4.3. Chloride 97. Bicarbonate 29. Anion gap 13.3. BUN 12. Creatinine 0.7. Glucose 97. Calcium 8.4. T bili 0.3. AST 19. ALT 12. Alk phos 114. Baseline troponin XII, 2-hour troponin IX 0.81. Total protein 6.8. Globulin 3.1. Albumin 3.7. Urine hazy, 1+ bilirubin, 0-4 WBC. 5-10 squamous epithelial cells. 1+ bacteria. 15-25 hyaline casts. 2+ urine mucus. Rapid COVID-19 antigen negative. ABG 7.37/54.6/88.5/31.4. Chest x-ray with pulmonary hyperinflation. CT abdomen pelvis with currently no visible evidence for acute abdominal or pelvic pathologic process. In ER she received Solu-Medrol 125 mg. Review of Systems Const: Denies: fever(s), chills, body aches or malaise Eyes: Denies: change in vision or eye redness ENMT: Denies: throat pain, oral sores or ear or mastoid pain Card: Denies: chest pain, edema, pre-syncope or dyspnea on exertion Resp: Reports: productive cough and pain on inspiration (and palpation R lower chest/RUQ, R flank); Denies: dyspnea, change in phlegm color or hemoptysis GI: Denies: abdominal pain, nausea, vomiting, diarrhea, constipation, hematochezia or melena : Reports: flank pain; Denies: urinary frequency or hematuria Musc: Denies: back pain, joint swelling or joint redness Skin/Breast: Denies: rash, sores or new lesions Neuro: Denies: headache(s), numbness in extremities, weakness in extremities, dizziness, confusion or seizure-like activity Endo: Denies: polyuria or polydipsia Brayan/Lymph: Denies: easy bleeding or purpura All/Imm: Denies: urticaria, throat swelling or tongue swelling Medications/Allergies Home Medications Medication Instructions Recorded Confirmed Last Taken Type albuterol sulfate 90 mcg/actuation 2 puff INHALATION Q6H PRN 10/12/19 01/20/21 12/23/20 History aerosol inhaler omeprazole 20 mg tablet,delayed 20 mg PO BID@08,18 10/12/19 01/20/21 01/20/21 History release atorvastatin 80 mg tablet 80 mg PO DAILY@18 tab 11/20/19 01/20/21 01/19/21 History azelastine 137 mcg (0.1 %) nasal 1 spray INTRANASAL BID 30 Days #30 05/08/20 01/20/21 01/19/21 Rx spray aerosol ml montelukast 10 mg tablet 10 mg PO BEDTIME@1800 05/08/20 01/20/21 01/19/21 History diphenhydramine HCl 25 mg capsule 25 mg PO TID PRN 10/03/20 01/20/21 12/23/20 History budesonide-formoterol HFA 160 2 puff INHALATION BID #10.2 g 11/20/20 01/20/21 01/20/21 Rx mcg-4.5 mcg/actuation aerosol inhaler ipratropium 0.5 mg-albuterol 3 mg 3 ml INHALATION Q4H PRN #540 ml 11/20/20 01/20/21 12/23/20 Rx (2.5 mg base)/3 mL nebulization soln benzonatate 200 mg capsule 200 mg PO TID PRN 11/28/20 01/20/21 01/20/21 History cyclobenzaprine 10 mg tablet 10 mg PO TID PRN #90 tab 11/28/20 01/20/21 01/20/21 Rx diclofenac sodium 1 % topical gel 4 g TOPICAL QID #300 g 11/28/20 01/20/21 12/23/20 Rx oxycodone 15 mg tablet 15 mg PO QID PRN 30 Days #120 tab 11/28/20 01/20/21 01/20/21 Rx Lyrica 150 mg PO BID@08,18 01/20/21 01/20/21 01/20/21 History Spiriva with HandiHaler 1 cap INHALATION DAILY@08 01/20/21 01/20/21 01/20/21 History dextromethorphan-guaifenesin 2.5 ml PO QID PRN 01/20/21 01/20/21 01/20/21 History [Robitussin DM Max] primidone 100 mg PO BID@08,18 01/20/21 01/20/21 01/20/21 History sertraline 25 mg PO BID@08,18 01/20/21 01/20/21 01/20/21 History Allergies Allergy/AdvReac Type Severity Reaction Status Date / Time naproxen [From Aleve] Allergy Severe hives, Verified 01/20/21 11:43 airway closes zonisamide [From Zonegran] Allergy Severe ALGY-Difficulty Verified 01/20/21 11:43 Breathing codeine Allergy Unknown Verified 01/20/21 11:43 meloxicam [From Mobic] Allergy burning Verified 01/20/21 11:43 while urinating Penicillins Allergy Unknown Verified 01/20/21 11:43 alprazolam [From Xanax] AdvReac Unknown Verified 01/20/21 11:43 aspirin AdvReac ADR-Vomitin Verified 01/20/21 11:43 g baclofen AdvReac ADR-Confusi Verified 01/20/21 11:43 on hydrocodone AdvReac ADR-Itching Verified 01/20/21 11:43 tramadol AdvReac ADR-Itching Verified 01/20/21 11:43 PFSH Acute PFSH: Medical History Acute cystitis without hematuria Blood in stool Bulging lumbar disc Colon polyp COPD (chronic obstructive pulmonary disease) Encounter for long-term opiate analgesic use Fibromyalgia Hip pain, right Hypermobility of urethra Low back pain of over 3 months duration Lumbar post-laminectomy syndrome Opioid contract exists Sacro-iliac pain Spinal stenosis of lumbar region with radiculopathy Spondylosis without myelopathy or radiculopathy, lumbar region Traumatic compression fracture of twelfth thoracic vertebra Urinary bladder incontinence Surgical History H/O eye surgery Macular Pucker History of appendectomy History of hysterectomy History of lumbar fusion History of lumbar fusion Hx of cataract surgery Hx of kyphoplasty w/Dr Martinez 2015 T 12 Family History Mother , Age 81 Heart disease Father , In his 80's LINUX SOLARIS ADMINISTRATOR to Bone Cancer Cancer Other CAD (coronary artery disease) Stroke Denies family history of Diabetes Hypertension Social History Smoking and tobacco status: former smoker Quit status (tobacco): has quit using tobacco Year quit tobacco: 2019 - PPD x 56 Years Second hand smoke exposure: No Alcohol intake: never Lives independently: Yes Household members: family Marital status: / Current occupational status: retired History of recent travel: No Current gender identity: Female Vitals/I&O/Wt Last Vital Signs Temp 98.7 F 01/20/21 16:00 Pulse 92 01/20/21 16:00 Resp 18 01/20/21 16:30 BP 166/96 01/20/21 16:00 Pulse Ox 94 01/20/21 16:30 Weight last 48 hrs Weight 109.316 kg Physical Exam Const: COMMON NORMALS: no acute distress, patient oriented x3 and alert GENERAL APPEARANCE: cooperative NUTRITIONAL APPEARANCE: overweight ORIENTATION/CONSCIOUSNESS: Yes awake HENMT: COMMON NORMALS: oropharynx normal Neck/C-Spine: COMMON NORMALS: no JVD Resp: COMMON NORMALS: normal respiratory effort AUSCULTATION: wheezes and diminished lung sounds Cardio: COMMON NORMALS: no JVD, regular rhythm, S1 normal heart sound present, S2 normal heart sound present and No murmurs present (Cardio) RHYTHM: regular rhythm HEART SOUNDS: S1 normal heart sound present and S2 normal heart sound present GI: COMMON NORMALS: Normal to inspection, nondistended, normoactive bowel sounds present, Soft to palpation and non-tender PALPATION: Yes Soft to palpation and Yes Tenderness to palpation present (GI) (And right flank) Deta ils: RUQ Extremity: COMMON NORMALS: no joint enlargement and no pedal edema Neuro: COMMON NORMALS: patient oriented x3 and moves all extremities Skin: COMMON NORMALS: no rashes or lesions noted GENERAL SKIN EXAM: no rashes or lesions noted Data : 01/20/21 11:58 01/20/21 11:58 A&P Assessment and plan (1) COPD exacerbation: Severe exacerbation of COPD, with dyspnea, cough, production of white sputum. Received Solu-Medrol in ER. We will add antibiotic. Collect sputum culture if possible. Breathing treatments. Continue steroids with prednisone daily for now. Continue oxygen support. Currently on 5 L, but states that at baseline at home is on 5. Continue follow-up with pulmonology after discharge. At home states has a nebulizer and has medications to use in it. Denies sleep apnea or CPAP or BiPAP use at home. Status: Acute (2) Upper abdominal pain: Bandlike attribution under her breasts, in the upper abdomen, lower chest. Mostly on examination triggered on palpation on the right side. Is to be radiating somewhat around. There is tenderness on palpation of the right flank/CVA. Right upper quadrant pain tenderness palpation appears just under the rib cage, right flank/CVA tenderness appears over the ribs. Denies trauma, however, has been coughing recently. She also a gets intermittent steroids due to COPD with intermittent exacerbations. Denies previously having BMD testing. For the most part. Appears to be related to musculoskeletal component. She is at risk of osteopenia or osteoporosis with chronic steroid use. Will assess x- ray of thoracic spine for any compression fractures she may have incurred, possibly pathologic fractures. She is noted to have elevation of alkaline phosphatase which is new, up to 114, minimal. Does have tenderness in right upper quadrant. On CT abdomen pelvis h epatobiliary structures appear rather unremarkable. Will closer assess with right upper quadrant ultrasound. GGT may help to see whether this is again possibly related to bone. There is otherwise no suggestion of complicated UTI/pyelonephritis. No nephrolithiasis. Symptomatically will treat with lidocaine patch. Continue also her ox her home. Tylenol as needed. Incentive spirometer. Status: Acute Additional A&P Information Recent colonoscopy: Uneventful Chronic lower back pain Regards to reduce Spinal stenosis, following with pain clinic intermittently Attestations Medical Necessity Statement*: Admission of over 2 midnights ago needed for assessment of management of severe COPD exacerbation, upper abdominal/lower chest pain. Coding Level of Care Code Acute Solar Installation Technician for Geovanni Fwd Exam Comprehensive Diagnoses COPD exacerbation J44.1 Upper abdominal pain R10.10
[2021-01-20] MEDS: primidone 50 mg Tablet 100 MG PO (18:07)
[2021-01-20] MEDS: atorvastatin 40 mg Tablet 80 MG PO (18:07)
[2021-01-20] MEDS: pregabalin 150 mg Capsule PO (18:07)
[2021-01-20] MEDS: levoFLOXacin 750 mg Tablet PO (18:07)
[2021-01-20] MEDS: montelukast sodium 10 mg Tablet PO (18:07)
[2021-01-20] MEDS: ipratropium-albuterol 3 mL Neb INHALATION (18:11)
[2021-01-20 18:49] LABS: Troponin 5 6HR 9.18 ng/L (0-10)
[2021-01-20 18:50] LABS: Troponin 5 6HR Delta -2.82 ng/L (0-12)
[2021-01-20 19:08] LABS: Gamma Glutamyl Transferase 35 U/L (5-36)
[2021-01-20] MEDS: heparin 5,000 unit/mL INJ 1 mL 5000 UNIT SUBCUT (21:30)
[2021-01-21] VITALS (17 sets, daily range): BP systolic 105–168; BP diastolic 61–86; PULSE 78–99; RESP 17–28; TEMP 36.6–36.8; O2SAT 84–97
--- NOTE | 2021-01-21 | XR_ITS ---
WS: [id number] Exam: XR thoracic spine 3V* [id number] Date/Time of Exam: 01/21/2021 4:57 PM Reason For Exam: pain, chronic steroid, assess compression fx Comparison with C-arm images performed 06/25/2016. No acute fracture or dislocation noted. Kyphoplasty of old low-grade T12 compression fracture. There is bony sclerosis of T10. Paraspinal soft tissues are unremarkable. Moderate degenerative change and spondylosis. XR/XR thoracic spine 3V* [id number] IMPRESSION: 1. No acute fracture or malalignment. 2. T12 kyphoplasty. 3. There appears to be some bony sclerosis of the T10. Significance is undeterm ined.
[2021-01-21] MEDS: albuterol 8 gm MDI 2 PUFF INHALATION ×3 (02:08→13:46)
[2021-01-21] MEDS: heparin 5,000 unit/mL INJ 1 mL 5000 UNIT SUBCUT ×3 (04:34→21:01)
[2021-01-21 06:20] LABS: Basophils # 0.1 10^3/uL (0.0-0.1); Basophils % 0.5 %; Eosinophils % 0.3 %; Hematocrit 29.5 % (37.0-47.0); Hemoglobin 8.7 g/dL (11.5-15.3); Lymphocytes # 2.8 10^3/uL (0.8-4.8); Lymphocytes % 20.2 %; Mean Corpuscular HGB Conc 29.5 g/dL (30.0-36.0); Mean Corpuscular Hemoglobin 23.9 pg (28.0-34.0); Monocytes # 1.1 10^3/uL (0.2-0.9); Monocytes % 8.3 %; Neutrophils # 9.39 10^3/uL (1.8-7.7); Neutrophils % 68.7 %; Nucleated Red Blood Cells % 0 %; Platelet Count 233 10^3/cmm (130-400); Red Blood Count 3.64 10^6/uL (4.1-5.3); Red Cell Distribution Width 16.5 % (12.1-15.1); White Blood Count 13.7 10^3/uL (4.0-10.0)
[2021-01-21 06:32] LABS: Alanine Aminotransferase 9 U/L (0-33); Albumin Level 3.3 g/dL (3.5-5.2); Alkaline Phosphatase 99 IU/L (35-105); Anion Gap 11.2 (5-19); Aspartate Amino Transferase 15 U/L (0-32); Blood Urea Nitrogen 10 mg/dL (8-23); Calcium 8.1 mg/dL (8.5-10.5); Carbon Dioxide 32 mmol/L (22-29); Chloride 100 mmol/L (98-107); Globulin 2.6 g/dL (1.3-4.6); Glomerular Filtration Rate 157.8 mL/min (90-130); Glucose 90 mg/dL (65-115); Osmolality Calculated 287 mOsm/kg (285-295); Potassium 4.2 mmol/L (3.5-5.1); Sodium 139 mmol/L (136-145); Total Bilirubin 0.3 mg/dL (0.15-1.2); Total Protein 5.9 g/dL (6.6-8.7)
--- NOTE | 2021-01-21 07:00 | US_ITS ---
WS: [id number] RIGHT UPPER QUADRANT ULTRASOUND HISTORY: hepatobiliary - RUQ pain COMPARISON: CT abdomen 01/20/2021 Liver: 16.5 cm in length. Mild enlargement with moderate hepatic steatosis and coarsened echotexture. No mass or bile duct dilatation. Gallbladder: Normally distended gallbladder with stones. Several stones with shadowing. No pericholec ystic fluid or gallbladder wall thickening. CBD: 0.5 cm Pancreas: Not visualized. Right kidney: 10.0 cm in length. Normal size and echogenicity. No hydronephrosis or mass. Aorta and IVC: Unremarkable abdominal aorta and IVC. No ascites. US/US abdomen limited [id number] IMPRESSION: 1. Cholelithiasis without acute cholecystitis. 2. Mild hepatomegaly with moderate hepatic steatosis.
[2021-01-21] MEDS: primidone 50 mg Tablet 100 MG PO ×2 (08:35→17:38)
[2021-01-21] MEDS: pregabalin 150 mg Capsule PO ×2 (08:35→17:37)
[2021-01-21] MEDS: predniSONE 20 mg Tablet 40 MG PO (08:35)
[2021-01-21] MEDS: lidocaine 5% Patch 1 PATCH TOPICAL ×2 (08:36→11:11)
[2021-01-21] MEDS: sertraline 50 mg Tablet 25 MG PO ×2 (08:36→17:38)
[2021-01-21] MEDS: pantoprazole DR 40 mg Tablet PO (08:36)
[2021-01-21] MEDS: benzonatate 100 mg Capsule 200 MG PO (12:51)
[2021-01-21] MEDS: oxyCODONE IR 30 mg Tablet 15 MG PO ×2 (12:51→17:38)
[2021-01-21] MEDS: morphine 4 mg/mL SDV 1 mL 2 MG IVP ×3 (14:15→22:41)
[2021-01-21 14:48] LABS: Coronavirus Test Green County Not Detected
[2021-01-21] MEDS: cyclobenzaprine 10 mg Tablet PO (16:09)
--- NOTE | 2021-01-21 17:20 | PM.PN ---
Subjective Subjective: Interval history: Having pain in RUQ/R flank. Pain worse with inspiration, movement. Breathing is about the same. She is still having wheezing. Vitals/I&O/Wt Last Vital Signs Temp 98.0 F 01/21/21 16:00 Pulse 84 01/21/21 16:00 Resp 18 01/21/21 16:00 BP 148/86 01/21/21 16:00 Pulse Ox 96 01/21/21 16:00 01/21/21 01/21/21 01/21/21 06:59 14:59 22:59 Intake Total 1040 / 1040 Balance 1040 / 1040 Weight last 48 hrs Weight 111.811 kg Weight 109.316 kg Physical Exam Const: COMMON NORMALS: no acute distress, patient oriented x3 and alert GENERAL APPEARANCE: cooperative NUTRITIONAL APPEARANCE: overweight ORIENTATION/CONSCIOUSNESS: Yes awake HENMT: COMMON NORMALS: oropharynx normal Neck/C-Spine: COMMON NORMALS: no JVD Chest: OTHER: Pain on palpation of right lower chest, right flank Resp: COMMON NORMALS: normal respiratory effort AUSCULTATION: wheezes (Less prominent today) and diminished lung sounds (Improving air entry) Cardio: COMMON NORMALS: no JVD, regular rhythm, S1 normal heart sound present, S2 normal heart sound present and No murmurs present (Cardio) RHYTHM: regular rhythm HEART SOUNDS: S1 normal heart sound present and S2 normal heart sound present GI: COMMON NORMALS: Normal to inspection, nondistended, normoactive bowel sounds present, Soft to palpation and non-tender PALPATION: Yes Soft to palpation and Yes Tenderness to palpation present (GI) (And right flank) Extremity: COMMON NORMALS: no joint enlargement and no pedal edema Neuro: COMMON NORMALS: patient oriented x3 and moves all extremities SENSORIUM/ORIENTATION: Yes alert Skin: COMMON NORMALS: no rashes or lesions noted GENERAL SKIN EXAM: no rashes or lesions noted Data : 01/21/21 05:52 01/21/21 05:52 Micro: Microbiology 01/20/21 18:25 Gram Stain - Final Sputum - Expectorated Sputum A&P Assessment and plan (1) COPD exacerbation: Overall appears to be gradually improving, still wheezing. Productive cough. Concern discussed with her and her son, due to right lower chest pain, he does not appear to be taking as deep breaths as she should. Does not appear to be showing signs of CO2 retention, however, may be at risk of pneumonia as discussed with her and her son. Encouraged her to use incentive spirometry. At this time we will continue to biotics, steroid, continue monitoring inpatient due to high risk of worsening and with baseline high oxygen requirement at 5 L. Sputum culture mixed gram-positive's. Pending. Continue follow-up with pulmonology after discharge. At home states has a nebulizer and has medications to use in it. Denies sleep apnea or CPAP or BiPAP use at home. Status: Acute (2) Upper abdominal pain: Persistent pain with inspiration, movement in right lower chest, right flank. Discussed with her and her son. CT abdomen pelvis without acute abnormality. Liver parameters remain normal. Does have hepatic steatosis, mild hepatomegaly noted on right upper quadrant ultrasound. This may be having some small confusion, but overall concern is for musculoskeletal cause. She has history of vertebral compression fracture and vertebroplasty at T12. Her current symptoms appear to be higher than that. Due to this x-ray thoracic spine has been requested. Pending. Discussed with nursing staff to bring up again with x-ray technicians. In case x-ray is unrevealing, and if pain persists, perhaps additional imaging may be considered. Discussed with both her and her son concern regarding osteopenia, if compression fracture is revealed, may consider pathological fracture, and would benefit from treatment. Otherwise would benefit from follow-up with bone mineral density testing, possibly treatment depending on results. Alk phos was mildly elevated on presentation. GGT normal. Again would suspect this is bone related. Discussed with her consideration of TLSO brace. Encouraged incentive spirometry. Continue symptomatic treatment. Lidocaine patch. There is otherwise no suggestion of complicated UTI/pyelonephritis. No nephrolithiasis. Status: Acute Additional A&P Information Recent colonoscopy: Uneventful Chronic lower back pain Regards to reduce Spinal stenosis, following with pain clinic intermittently Attestations Medical Necessity Statement*: Continue admission for assessment of management of severe COPD exacerbation, with respirations limited by lower chest pain, high risk of worsening/development of pneumonia, with high baseline oxygen requirement at 5 L. Continue assessment and treatment of right lower chest pain. Coding Level of Care Code Acute Reset Merchandiser for Geovanni Solorzano Diagnoses COPD exacerbation J44.1 Upper abdominal pain R10.10
[2021-01-21] MEDS: montelukast sodium 10 mg Tablet PO (17:37)
[2021-01-21] MEDS: levoFLOXacin 750 mg Tablet PO (17:37)
[2021-01-21] MEDS: atorvastatin 40 mg Tablet 80 MG PO (17:37)
[2021-01-21] MEDS: ipratropium-albuterol 3 mL Neb INHALATION (19:59)
[2021-01-22] VITALS (18 sets, daily range): BP systolic 124–160; BP diastolic 66–85; PULSE 64–92; RESP 16–22; TEMP 36.6–37; O2SAT 91–98
[2021-01-22] MEDS: ipratropium-albuterol 3 mL Neb INHALATION ×4 (03:39→20:44)
[2021-01-22] MEDS: oxyCODONE IR 30 mg Tablet 15 MG PO ×2 (04:33→07:51)
[2021-01-22] MEDS: heparin 5,000 unit/mL INJ 1 mL 5000 UNIT SUBCUT ×3 (04:33→20:19)
[2021-01-22 05:37] LABS: Basophils # 0.1 10^3/uL (0.0-0.1); Basophils % 0.4 %; Eosinophils # 0.1 10^3/uL (0.0-0.8); Eosinophils % 0.5 %; Hematocrit 29.1 % (37.0-47.0); Hemoglobin 8.5 g/dL (11.5-15.3); Lymphocytes % 23.5 %; Mean Corpuscular HGB Conc 29.2 g/dL (30.0-36.0); Mean Corpuscular Hemoglobin 23.9 pg (28.0-34.0); Monocytes # 1.4 10^3/uL (0.2-0.9); Monocytes % 10.7 %; Neutrophils # 8.22 10^3/uL (1.8-7.7); Neutrophils % 63.9 %; Nucleated Red Blood Cells % 0 %; Platelet Count 229 10^3/cmm (130-400); Red Blood Count 3.55 10^6/uL (4.1-5.3); Red Cell Distribution Width 16.9 % (12.1-15.1); White Blood Count 12.9 10^3/uL (4.0-10.0)
[2021-01-22 05:54] LABS: Alanine Aminotransferase 11 U/L (0-33); Albumin Level 3.2 g/dL (3.5-5.2); Alkaline Phosphatase 91 IU/L (35-105); Anion Gap 10.9 (5-19); Aspartate Amino Transferase 15 U/L (0-32); Blood Urea Nitrogen 11 mg/dL (8-23); Carbon Dioxide 31 mmol/L (22-29); Chloride 100 mmol/L (98-107); Globulin 2.5 g/dL (1.3-4.6); Glomerular Filtration Rate 98.8 mL/min (90-130); Glucose 134 mg/dL (65-115); Osmolality Calculated 287 mOsm/kg (285-295); Potassium 3.9 mmol/L (3.5-5.1); Sodium 138 mmol/L (136-145); Total Bilirubin 0.2 mg/dL (0.15-1.2); Total Protein 5.7 g/dL (6.6-8.7)
[2021-01-22] MEDS: primidone 50 mg Tablet 100 MG PO ×2 (07:51→18:39)
[2021-01-22] MEDS: sertraline 50 mg Tablet 25 MG PO ×2 (07:51→18:39)
[2021-01-22] MEDS: cyclobenzaprine 10 mg Tablet PO ×2 (07:51→18:39)
[2021-01-22] MEDS: pantoprazole DR 40 mg Tablet PO (07:52)
[2021-01-22] MEDS: pregabalin 150 mg Capsule PO ×2 (07:52→18:39)
[2021-01-22] MEDS: predniSONE 20 mg Tablet 40 MG PO (07:52)
[2021-01-22] MEDS: lidocaine 5% Patch 1 PATCH TOPICAL (07:52)
[2021-01-22] MEDS: oxyCODONE IR 30 mg Tablet PO ×2 (11:42→18:40)
--- NOTE | 2021-01-22 13:53 | P.PN_ITS ---
Subjective Subjective: Interval history: She continues to have pain, right lower chest, right posterior chest/flank. Pain worse with any movement, deep inspiration, with cough, with use incentive spirometer. Discussed with her and her son the results of the x-ray. She denies history of malignancy, but is being followed by Dr. Carlson she says for an abnormality in her blood. Discussing with him, recommendation is to perform a bone scan. Vitals/I&O/Wt Last Vital Signs Temp 98.6 F 01/22/21 11:25 Pulse 79 01/22/21 11:25 Resp 18 01/22/21 11:42 BP 132/85 01/22/21 11:25 Pulse Ox 94 01/22/21 11:25 01/21/21 01/22/21 01/22/21 22:59 06:59 14:59 Intake Total 480 / 1520 680 / 2200 240 / 240 Balance 480 / 1520 680 / 2200 240 / 240 Weight last 48 hrs Weight 110.994 kg Weight 111.811 kg Physical Exam Const: COMMON NORMALS: no acute distress, patient oriented x3 and alert GENERAL APPEARANCE: cooperative NUTRITIONAL APPEARANCE: overweight ORIENTATION/CONSCIOUSNESS: Yes awake HENMT: COMMON NORMALS: oropharynx normal Neck/C-Spine: COMMON NORMALS: no JVD Chest: OTHER: Pain on palpation of right lower chest, right flank Resp: COMMON NORMALS: normal respiratory effort AUSCULTATION: no wheezes and diminished lung sounds (Improving air entry) Cardio: COMMON NORMALS: no JVD, regular rhythm, S1 normal heart sound present, S2 normal heart sound present and No murmurs present (Cardio) RHYTHM: regular rhythm HEART SOUNDS: S1 normal heart sound present and S2 normal heart sound present GI: COMMON NORMALS: Normal to inspection, nondistended, normoactive bowel sounds present, Soft to palpation and non-tender PALPATION: Yes Soft to palpation and Yes Tenderness to palpation present (GI) (And right flank) Extremity: COMMON NORMALS: no joint enlargement and no pedal edema Neuro: COMMON NORMALS: patient oriented x3 and moves all extremities SENSORIUM/ORIENTATION: Yes alert Skin: COMMON NORMALS: no rashes or lesions noted GENERAL SKIN EXAM: no rashes or lesions noted Data : 01/22/21 04:58 01/22/21 04:58 Micro: Microbiology 04/27/21 18:25 Gram Stain - Final Sputum - Expectorated Sputum Sputum Culture - Preliminary A&P Assessment and plan (1) COPD exacerbation: COPD exacerbation is gradually improving. Wheezing is resolving. Air entry is slowly improving. She is still having quite limited inspiration due to severe pain in the right lower chest/flank. Pain with incentive spirometry. We are stepping up pain control. Encouraged her to continue with NSAIDs extremity as tolerating. Overall appears to be gradually improving, still wheezing. Productive cough. Concern discussed with her and her son, due to right lower chest pain, he does not appear to be taking as deep breaths as she should. Does not appear to be showing signs of CO2 retention, however, may be at risk of pneumonia as discussed with her and her son. Encouraged her to use incentive spirometry. At this time we will continue to biotics, steroid, continue monitoring inpatient due to high risk of worsening and with baseline high oxygen requirement at 5 L. Sputum culture mixed gram-positive's. Pending. Continue follow-up with pulmonology after discharge. At home states has a nebulizer and has medications to use in it. Denies sleep apnea or CPAP or BiPAP use at home. Status: Acute (2) Upper abdominal pain: Due to significant pain limiting inspiration, mobility, we are increasing her pain control, continue lidocaine patch, oxycodone increased to 30 mg every 4 hours as needed. Continue morphine IV as needed. PT is fitting her for TLSO brace. Additionally investigate T10 sclerotic changes. She and her son will be discussing bone mineral density testing with her PCP. Alk phos was mildly elevated on presentation. GGT normal. Again would suspect this is bone related. There is otherwise no suggestion of complicated UTI/pyelonephritis. No nephrolithiasis. Status: Acute (3) Bony sclerosis: Bony sclerotic changes at T10. Discussed with her and her son. Discussed with her oncologist, he is doubtful that this is related to the hematological conditions he had been following her for. However, recommendation is for additional assessment by bone scan. This is requested and agreed upon by patient and her son. Status: Acute Additional A&P Information Recent colonoscopy: Uneventful Chronic lower back pain Fibromyalgia Spinal stenosis, following with pain clinic intermittently Attestations Medical Necessity Statement*: Continue hospitalization for assessment management of severe/persistent/intractable pain in right lower chest, right flank, limiting inspiration, mobility, improving COPD exacerbation, assessment of T10 sclerotic bony lesion. 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
[2021-01-22] MEDS: montelukast sodium 10 mg Tablet PO (18:39)
[2021-01-22] MEDS: levoFLOXacin 750 mg Tablet PO (18:39)
[2021-01-22] MEDS: atorvastatin 40 mg Tablet 80 MG PO (18:39)
[2021-01-22] MEDS: morphine 4 mg/mL SDV 1 mL 2 MG IVP (21:09)
[2021-01-23] VITALS (15 sets, daily range): BP systolic 124–165; BP diastolic 59–96; PULSE 76–95; RESP 16–23; TEMP 36.4–37.1; O2SAT 92–96
[2021-01-23] MEDS: morphine 4 mg/mL SDV 1 mL 2 MG IVP ×2 (01:11→10:41)
[2021-01-23] MEDS: ipratropium-albuterol 3 mL Neb INHALATION ×3 (03:00→14:20)
[2021-01-23 05:20] LABS: Basophils # 0.1 10^3/uL (0.0-0.1); Basophils % 0.7 %; Eosinophils # 0.1 10^3/uL (0.0-0.8); Eosinophils % 0.8 %; Hemoglobin 8.7 g/dL (11.5-15.3); Lymphocytes # 3.6 10^3/uL (0.8-4.8); Lymphocytes % 22.6 %; Mean Corpuscular Hemoglobin 23.7 pg (28.0-34.0); Mean Corpuscular Volume 81.7 fL (81-99); Mean Platelet Volume 10.6 fL (7.4-10.4); Monocytes # 1.9 10^3/uL (0.2-0.9); Neutrophils # 9.93 10^3/uL (1.8-7.7); Neutrophils % 62.7 %; Nucleated Red Blood Cells % 0 %; Platelet Count 252 10^3/cmm (130-400); Red Blood Count 3.67 10^6/uL (4.1-5.3); Red Cell Distribution Width 16.8 % (12.1-15.1); White Blood Count 15.8 10^3/uL (4.0-10.0)
[2021-01-23] MEDS: heparin 5,000 unit/mL INJ 1 mL 5000 UNIT SUBCUT ×2 (05:38→13:15)
[2021-01-23 05:42] LABS: Alanine Aminotransferase 12 U/L (0-33); Albumin Level 3.7 g/dL (3.5-5.2); Alkaline Phosphatase 102 IU/L (35-105); Anion Gap 10.3 (5-19); Aspartate Amino Transferase 20 U/L (0-32); Blood Urea Nitrogen 16 mg/dL (8-23); Calcium 8.5 mg/dL (8.5-10.5); Carbon Dioxide 33 mmol/L (22-29); Chloride 98 mmol/L (98-107); Glomerular Filtration Rate 70.9 mL/min (90-130); Glucose 100 mg/dL (65-115); Osmolality Calculated 285 mOsm/kg (285-295); Potassium 4.3 mmol/L (3.5-5.1); Sodium 137 mmol/L (136-145); Total Bilirubin 0.3 mg/dL (0.15-1.2); Total Protein 6.7 g/dL (6.6-8.7)
--- NOTE | 2021-01-23 07:00 | NM_ITS ---
WS: [id number] NUCLEAR MEDICINE WHOLE BODY BONE SCAN HISTORY: Sclerotic changes t10 COMPARISON: 04/13/2019, 01/22/2012 TECHNIQUE: The patient was injected with 26.9 mCi of Technetium 99m HDP and serial whole-body scintig esmer have been performed with anterior and posterior images. Focal uptake is significant involving what is probably the 8 and 10 thoracic vertebral bodies. Subtle uptake within the LEFT superior endplate of T11. There is additional significant uptake in the media l RIGHT knee joint which is osteoarthritic. No rib lesions. No additional thoracic abnormality. NM/NM bone scan whole body* [id number] IMPRESSION: 1. Intense uptake within T8, T10 and probably the superior endplate of T11 on the LEFT. Differential includes metastatic bone disease or acute fractures. No history of malignancy has been provided. 2. Recommend follow-up thoracic spine CT to evaluate for fractures. This study can be done without IV contrast.
[2021-01-23] MEDS: pregabalin 150 mg Capsule PO (08:47)
[2021-01-23] MEDS: primidone 50 mg Tablet 100 MG PO (08:47)
[2021-01-23] MEDS: predniSONE 20 mg Tablet 40 MG PO (08:48)
[2021-01-23] MEDS: sertraline 50 mg Tablet 25 MG PO (08:48)
[2021-01-23] MEDS: pantoprazole DR 40 mg Tablet PO (08:48)
[2021-01-23] MEDS: lidocaine 5% Patch 1 PATCH TOPICAL (08:50)
--- NOTE | 2021-01-23 10:18 | PC.SOCIAL ---
*IMM UPDATE* Gave patient IMM update and provided her a copy of pg 2. Verbalized understanding. 01/23/21 @ 0859 Initialed, dated, timed and placed in chart.
--- NOTE | 2021-01-23 12:53 | CT_ITS ---
WS: [id number] CT THORACIC SPINE HISTORY: abnormal bone scan, poss fx vs mets TECHNIQUE: Contiguous 2.5 mm axial images are reviewed to thoracic spine. Images are reformatted in s agittal and coronal planes. All CT scans at [facility] use at least one of these dose opt imization techniques: automated exposure control; mA and/or kV adjustment per patient size (includes targeted exams where dose is matched to clinical indication); or iterative reconstruction. DLP: 2105.19 mGy.cm COMPARISON: 10/19/2018, bone scan 01/23/2021. Slight increase in the thoracic kyphosis. There is diffuse osteopenia. Prior vertebroplasty at T12. Sclerotic changes and lytic changes involving T10. This corresponds to the abnormality seen on the shanice ne scan. T10 vertebral body has the appearance of an osteoporotic fracture. There is also a lytic zamzam e extending through the superior T8 vertebral body consistent with an nondisplaced fracture. There is mild anterior wedging of T6 which is probably remote compression fracture but new since 10/19/2018. Degenerative disc disease throughout the lumbar spine. Vacuum disc phenomenon at T10-11 and T11-12. Fibrotic changes are noted within the lungs. 5 mm nodule in the superior RIGHT lower lobe was present on the prior study with no change. Chronic atelectasis at the RIGHT lung base. CT/CT thoracic spin wo con* [id number] IMPRESSION: 1. The abnormalities within the T8 and T10 vertebral bodies seen on the prior bone scan are consistent with osteoporotic compression fractures. No definite f racture involving the superior endplate of T11. Not likely metastatic disease. 2. Mild anterior wedging of T6 from a remote fracture. 3. Prior vertebroplasty at T12.
[2021-01-23] MEDS: oxyCODONE IR 30 mg Tablet PO (15:48)
--- NOTE | 2021-01-23 17:40 | PC.NURSE ---
Discharge instructions given to patient, all questions answered. IV catheter discontinued. Tip intact. Patient discharged in stable condition in the care of her son.
--- NOTE | 2021-01-23 22:02 | P.DS_ITS ---
Discharge Providers Date of Admission: 01/20/21 14:18 Date of Discharge: January 23, 2021 Attending Provider at Admission: Sukh Enriquez Attending Provider at Discharge: Sukh Enriquez Primary Care Provider: Karuna Hanna NP Diagnoses at Discharge Discharge Diagnosis (1) COPD exacerbation: Status: Acute (2) Upper abdominal pain: Status: Acute (3) Bony sclerosis: Status: Acute Reason for Visit Reason for Visit: SOB, UPPER ABDOMEN PAIN Hospital Course Hospital Course Very pleasant 70-year-old lady with history of advanced COPD, on chronic 5 L of oxygen nasal cannula at baseline, following with pulmonology, with history of T12 compression fracture, vertebral augmentation procedure, also history of lymphoma, followed expectantly by hematology was admitted for assessment and treatment of severe exacerbation of COPD, as well as assessment of severe pain across lower chest/upper abdomen, worse on the right, radiating to the left and palpation on the right side, as well as right flank, right side posterior chest pain on palpation, deep inspiration, cough, movement. Pain was severe to limit movement, ambulation, as well as resting inspiration, making breathing even more difficult. On presentation she was assessed by CT abdomen pelvis without finding of any urinary tract abnormality to be responsible for the flank pain. Pancreas noted unremarkable. Liver without hepatic mass or cystic structure. Gallbladder unremarkable. Additionally assessed by thoracic spine x-ray due to recurrent use of steroids, history of compression fracture after fall, however, fracture was not evident from x-ray, but appeared to have some bony sclerosis of the T10 of undetermined significance. This was discussed with her oncologist, doubtful that this would be related to condition he had been following her for. However, additional evaluation requested by bone scan. She also underwent right upper quadrant ultrasound assessment due to initially also alkaline phosphatase elevation, with noted cholelithiasis without acute cholecystitis. Mild hepatomegaly with moderate hepatic steatosis. This was discussed with her and her son. This will need continued follow-up and management to reduce risk of progression to fibrosis or cirrhosis. Due to significant pain in addition to her usual oxycodone she was also treated with lidocaine patch, IV morphine. Was assessed by physical therapy and fitted with TLSO brace. Oxycodone dose had to be increased to 30 mg every 4 hours as needed. Pain showed some improvement. She was encouraged to use incentive spirometer, flutter valve to prevent pneumonia. Bone scan revealed intense uptake within T8, T10, and probably the superior endplate of T11 on the left. Differential included metastatic bone disease or acute fractures. As recommended, CT thoracic spine was obtained for follow-up imaging, with finding of abnormality within T8 and T10 vertebral bodies consistent with osteoporotic compression fractures. No definitive fracture involving superior endplate of T11. Not likely metastatic disease. As this time she did not have any recent fall, and with osteoporosis appearance on imaging, these are considered pathological fractures, most likely consistent with osteoporosis likely with recurrent steroid use. Discussed this concern with her and her son. On discharge she is at this time provided with lissette frazier. Please follow-up with her regarding the medication. Please follow-up with bone mineral density testing. Follow-up calcium levels. Please avoid steroids unless absolutely necessary. In terms of severe COPD exacerbation, her breathing has progressively gotten better. Wheezing has resolved. Phlegm production significantly improved. Steroids are discontinued at this time. She will complete antibiotic course with Levaquin. She is encouraged to follow-up with pulmonology. She is encouraged to follow-up with pain specialist. Please see full hospitalization, diagnostic testing and notes for details. Do not hesitate to reach out with questions. Physical Exam Const: COMMON NORMALS: no acute distress, patient oriented x3 and alert GENERAL APPEARANCE: cooperative NUTRITIONAL APPEARANCE: overweight ORIENTATION/CONSCIOUSNESS: Yes awake HENMT: COMMON NORMALS: oropharynx normal Neck/C-Spine: COMMON NORMALS: no JVD Chest: OTHER: TLSO brace. Resp: COMMON NORMALS: normal respiratory effort AUSCULTATION: no wheezes and diminished lung sounds (Better air entry) Cardio: COMMON NORMALS: no JVD, regular rhythm, S1 normal heart sound present, S2 normal heart sound present and No murmurs present (Cardio) RHYTHM: regular rhythm HEART SOUNDS: S1 normal heart sound present and S2 normal heart sound present GI: COMMON NORMALS: Normal to inspection, nondistended, normoactive bowel sounds present, Soft to palpation and non-tender PALPATION: Yes Soft to palpation and Yes Tenderness to palpation present (GI) (And right flank) Extremity: COMMON NORMALS: no joint enlargement and no pedal edema Neuro: COMMON NORMALS: patient oriented x3 and moves all extremities SENSORIUM/ORIENTATION: Yes alert Skin: COMMON NORMALS: no rashes or lesions noted GENERAL SKIN EXAM: no rashes or lesions noted Discharge Data Data Completed and Pending: Completed Studies During Hospitalization Category Date Time Status CT abdomen pelvis w con* [id number] Stat Cat Scan 01/20/21 14:[address] thoracic spin wo con* [id number] Rout ine Cat Scan 01/23/21 12:53 Completed XR chest 1V kelechi ble [id number] Stat Exams 01/20/21 11:49 Completed XR thoracic spine 3V* [id number] Routine Exams 01/21/21 Completed NM bone scan whol e body* [id number] Rout ine Nuc Med 01/23/21 07:00 Completed US abdomen limite d [id number] Routine Ultrasound 01/21/21 07:00 Completed Labs from last 24 hours 01/23/21 01/23/21 05:00 05:00 WBC 15.8 H RBC 3.67 L Hgb 8.7 L Hct 30.0 L MCV 81.7 MCH 23.7 L MCHC 29.0 L RDW 16.8 H Plt Count 252 MPV 10.6 H Neut % (Auto) 62.7 Lymph % (Auto) 22.6 [place] % (Auto) 12.0 Eos % (Auto) 0.8 Baso % (Auto) 0.7 Neut # (Auto) 9.93 H Lymph # (Auto) 3.6 [place] # (Auto) 1.9 H Eos # (Auto) 0.1 Baso # (Auto) 0.1 Nucleated RBC % (a uto) 0 Nucleated RBCs # 0.0 Sodium 137 Potassium 4.3 Chloride 98 Carbon Dioxide 33 H Anion Gap 10.3 BUN 16 Creatinine 0.8 GFR Calculation 70.9 L Glucose 100 Calculated Osmolal ity 285 Calcium 8.5 Total Bilirubin 0.3 AST 20 ALT 12 Alkaline Phosphata se 102 Total Protein 6.7 Albumin 3.7 Globulin 3.0 Vitals: Last Vital Signs Temp 98.5 F 01/23/21 17:47 Pulse 95 01/23/21 17:47 Resp 17 01/23/21 17:47 BP 164/89 01/23/21 17:47 Pulse Ox 92 01/23/21 17:47 Discharge Plan Discharge Patient Disposition: Home Condition: Stable Prescriptions: New Lidoderm 5 % Adhesive Patch,Medicated 1 patch topical [id number] Qty: 30 RF: 0 levofloxacin 750 mg Tablet 750 mg PO Q24H Qty: 4 RF: 0 alendronate 5 mg tablet 5 mg PO DAILY Qty: 30 RF: 0 Narcan 4 mg/actuation spray,non-aerosol 1 spray intranasal Q3M PRN (Reason: opioid overdose) Qty: 2 RF: 0 Continued montelukast [Singulair] 10 mg tablet 10 mg PO BEDTIME@1800 RF: 0 azelastine 137 mcg (0.1 %) aerosol,spray 1 spray INTRANASAL BID 30 Days Qty: 30 RF: 3 diphenhydramine HCl [Allergy (diphenhydramine)] 25 mg capsule 25 mg PO TID PRN (Reason: Allergy Symptoms) RF: 0 atorvastatin [Lipitor] 80 mg tablet 80 mg PO DAILY@18 RF: 0 albuterol sulfate [Ventolin HFA] 90 mcg/actuation HFA aerosol inhaler 2 puff INHALATION Q6H PRN (Reason: Allergy Symptoms) RF: 0 omeprazole 20 mg tablet,delayed release (DR/EC) 20 mg PO BID@,18 RF: 0 benzonatate 200 mg capsule 200 mg PO TID PRN (Reason: Cough) RF: 0 diclofenac sodium [Voltaren] 1 % gel 4 g topical QID Qty: 300 RF: 1 cyclobenzaprine 10 mg tablet 10 mg PO TID PRN (Reason: muscle spasm) Qty: 90 RF: 1 ipratropium-albuterol 0.5 mg-3 mg(2.5 mg base)/3 mL solution for nebulization 3 ml inhalation Q4H PRN (Reason: wheezing) Qty: 540 RF: 3 budesonide-formoterol [Symbicort] 160-4.5 mcg/actuation HFA aerosol inhaler 2 puff inhalation BID Qty: 10.2 RF: 3 primidone 50 mg tablet 100 mg PO BID@,18 RF: 0 sertraline 25 mg tablet 25 mg PO BID@,18 RF: 0 Spiriva with HandiHaler 18 mcg capsule, w/inhalation device 1 cap inhalation DAILY@08 RF: 0 Lyrica 150 mg capsule 150 mg PO BID@,18 RF: 0 dextromethorphan-guaifenesin 10-200 mg/5 mL Liquid 2.5 ml PO QID PRN (Reason: Cough) RF: 0 Changed oxycodone 15 mg tablet 30 mg PO Q4H PRN (Reason: pain) 30 Days Qty: 14 RF: 0 Discharge Orders: Discharge Order (Routine); Ordered 01/23/21 Ordered By: Sukh Enriquez Referrals: [facility] [Provider Group] - 4-7 days (Please call to make an appointment to be seen at the pain management clinic in 4-7 days.) Karuna Hanna NP [Primary Care Provider] - 4-7 days (Please call to make an appointment to be seen by Karuna Hanna in 4-7 days. for athologic fractures T8, T10. Pain. Steroid-induced osteoporosis. COPD exacerbation.) Giovanni Gloria MD [Physician] - 2 weeks (Please call to make an appointment to be seen by Dr. Gloria in 2 weeks.) Discharge Diet: Cardiac Discharge Activity: Increase activity as tolerated, As per PT/OT instructions and Oxygen as instructed Patient Instructions: Prednisone (By mouth), Oxycodone, Rapid Release (By mouth), Alendronate (By mouth), Levofloxacin (By mouth), Lidocaine Patch (On the skin), Osteoporosis (GEN), Vertebral Compression Fracture (GEN), Emphysema (GEN), Opioid Safety Activity Restrictions/Additional Instructions: Please continue pain treatment. Follow-up with pain management. Please maintain TLSO brace. Treat pain symptomatically. Opioids are high risk medications. Please note you are prescribed naloxone intranasal spray for opioid reversal in case of inadvertent overdose. Please educate your family regarding availability of this medication so they know to administer it. Continue follow-up with your lung specialist. Please continue to use incentive spirometer, flutter valve to keep your lungs open and prevent pneumonia. Please note that due to to additional compression fractures at T8, T10, these are considered pathologic fractures due to lack of significant injury to cause them. Concern is regarding osteoporosis secondary to steroids. Please note that alendronate, bisphosphonate medication used to treat osteoporosis is made available for you. Please additionally discuss this with your primary care provider. Please review carefully the provided informational sheet. Discontinue use in case of any adverse effects. Please discuss with your primary care doctor, and have them follow-up regarding this medication and checking calcium levels. Alendronate: Take only upon rising for the day; do not take at bedtime or before arising Take at least one-half hour before the first food, beverage, or medication of the day (Tablet) Swallow tablet with 6 to 8 ounces plain water (Oral solution) Take at least 2 ounces of plain water after oral solution (Effervescent tablet) Do not swallow the undissolved tablet; do not chew the tablet or allow it to dissolve in mouth because of the risk for oropharyngeal irritation (Effervescent tablet) Dissolve in 4 ounces of room temperature plain water only; do not use mineral or flavored water; wait at least 5 minutes after effervescence stops and then stir for about 10 seconds and ingest Do not lie down for at least 30 minutes after administration and until after the first food of the day If a once-weekly dose is missed, take one dose on the morning after the missed dose is remembered, and then return to taking one dose per week as originally scheduled on their chosen day; do not take 2 doses on the same day. Discharge Attestations Time Spent in Discharge Care*: greater than 30 min Quality Metrics Clinical Quality Measures During this hospital stay, did patient experience: None Coding Level of Care Code Acute [facility] note Diagnoses COPD exacerbation J44.1 Upper abdominal pain R10.10 Bony sclerosis Q78.2
--- NOTE | 2021-01-26 18:32 | PC.RESP ---
Pulmonary Rehab information sent to patient.
--- NOTE | 2021-01-29 11:53 | PC.SOCIAL ---
Addendum entered by Annette Barnhart RN 01/29/21 11:56: Please note could not reach patient notified her daughter and she will update patient that [facility] is working on these now. Original Note: Lidocaine patches approved through [place] that was submitted by this nurse. Updated [facility] and patient.
== END 2021-01-23 17:47 | disposition home or self-care (01) ==
LOC: ER 11:39 → MEDSURG 15:38
PROVIDERS: Admitting Provider Internal Medicine; Emergency Provider Family Medicine; PCP Nurse Practitioner Family; Visit Provider Internal Medicine
DX: J44.1 Chronic obstructive pulmonary disease with (acute) exacerbation (principal); R10.10 Upper abdominal pain, unspecified; Q78.2 Osteopetrosis; M54.5 Low back pain; Z99.81 Dependence on supplemental oxygen; M79.7 Fibromyalgia; G89.29 Other chronic pain; M54.9 Dorsalgia, unspecified; Z79.891 Long term (current) use of opiate analgesic
CPT/HCPCS: 36415; 36600; 51701; 71045; 72072; 72128; 74177; 76705; 78306; 80051; 80053; 81001; 82330; 82805; 82977; 84484; 85025; 87070; 87205; 87426; 87635; 93005; 94640; 94664; 96372; 96374; 97116; 97161; 97530; 99285; A9561; G0378; J1644; J2270; J2930; J3535; J7512; L0456; Q9967

== ENCOUNTER → 2021-01-27 10:11 | Outpatient (BNVA) | payer MEDICARE, SELFPAY | PROVIDERS: PCP Nurse Practitioner Family; Visit Provider Anesthesiology | DX: G89.29 Other chronic pain (principal); M47.816 Spondylosis without myelopathy or radiculopathy, lumbar region; S22.000A Wedge compression fracture of unspecified thoracic vertebra, initial encounter for closed fracture; X58.XXXA Exposure to other specified factors, initial encounter; F17.200 Nicotine dependence, unspecified, uncomplicated; Z98.1 Arthrodesis status; Z79.891 Long term (current) use of opiate analgesic | CPT/HCPCS: 99213 ==

== ENCOUNTER 2021-02-19 06:00 | Outpatient (RCR) | payer MEDICARE, SELFPAY | END 2021-02-23 23:59 | disposition home or self-care (01) | LOC: SPT 06:00 | PROVIDERS: PCP Nurse Practitioner Family; Referring Provider Nurse Practitioner Family; Visit Provider Nurse Practitioner Family | DX: S22.000D Wedge compression fracture of unspecified thoracic vertebra, subsequent encounter for fracture with routine healing (principal); X58.XXXD Exposure to other specified factors, subsequent encounter | CPT/HCPCS: 97161 ==

== ENCOUNTER 2021-02-24 06:00 | Outpatient (RCR) | payer MEDICARE, SELFPAY | END 2021-03-25 23:59 | disposition home or self-care (01) | LOC: SPT 06:00 | PROVIDERS: PCP Nurse Practitioner Family; Referring Provider Nurse Practitioner Family; Visit Provider Nurse Practitioner Family | DX: S22.000D Wedge compression fracture of unspecified thoracic vertebra, subsequent encounter for fracture with routine healing (principal); X58.XXXD Exposure to other specified factors, subsequent encounter | CPT/HCPCS: 97110 ==

== ENCOUNTER → 2021-04-10 09:56 | Outpatient (BNVA) | payer MEDICARE, SELFPAY | PROVIDERS: PCP Nurse Practitioner Family; Visit Provider Anesthesiology | DX: M47.816 Spondylosis without myelopathy or radiculopathy, lumbar region (principal); Z87.891 Personal history of nicotine dependence; Z98.1 Arthrodesis status; Z79.891 Long term (current) use of opiate analgesic | CPT/HCPCS: 99213 ==

== ENCOUNTER 2021-04-30 13:58 | Outpatient (CLI) | payer MEDICARE, SELFPAY ==
[2021-04-30 15:14] LABS: Basophils # 0.1 10^3/uL (0.0-0.1); Basophils % 0.6 %; Eosinophils # 0.6 10^3/uL (0.0-0.8); Eosinophils % 4.9 %; Hematocrit 33.2 % (37.0-47.0); Hemoglobin 9.2 g/dL (11.5-15.3); Lymphocytes % 23.1 %; Mean Corpuscular HGB Conc 27.7 g/dL (30.0-36.0); Mean Corpuscular Hemoglobin 21.7 pg (28.0-34.0); Mean Corpuscular Volume 78.5 fL (81-99); Mean Platelet Volume 10.7 fL (7.4-10.4); Monocytes % 7.5 %; Neutrophils # 8.17 10^3/uL (1.8-7.7); Neutrophils % 63.3 %; Nucleated Red Blood Cells % 0 %; Platelet Count 294 10^3/cmm (130-400); Red Blood Count 4.23 10^6/uL (4.1-5.3); Red Cell Distribution Width 20.3 % (12.1-15.1); White Blood Count 12.9 10^3/uL (4.0-10.0)
[2021-04-30 15:31] LABS: Alanine Aminotransferase 9 U/L (0-33); Albumin Level 3.6 g/dL (3.5-5.2); Alkaline Phosphatase 106 IU/L (35-105); Anion Gap 15.2 (5-19); Aspartate Amino Transferase 16 U/L (0-32); Blood Urea Nitrogen 14 mg/dL (8-23); Calcium 8.4 mg/dL (8.5-10.5); Carbon Dioxide 29 mmol/L (22-29); Chloride 93 mmol/L (98-107); Globulin 3.1 g/dL (1.3-4.6); Glomerular Filtration Rate 70.9 mL/min (90-130); Glucose 100 mg/dL (65-115); Lactate Dehydrogenase 209 U/L (135-214); Osmolality Calculated 277 mOsm/kg (285-295); Potassium 4.2 mmol/L (3.5-5.1); Sodium 133 mmol/L (136-145); Total Bilirubin 0.2 mg/dL (0.15-1.2); Total Protein 6.7 g/dL (6.6-8.7)
--- NOTE | 2021-04-30 16:30 | ONC FU_ITS ---
Dr. Carlson follow up note Patient: Sweta Fitzpatrick Unit #: [id number]: [id number] Dicatated By: Denis Carlson M.D.Date of Visit:Apr 30, 2021 Onc Med Follow-up/Prog Note History of Present Illness: Mrs. 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 As per patient her white blood count stay up mildly that led to special blood test which confirmed CLL. At the time of diagnosis on 04/04/2019 her CBC showed white blood count 10.8 hemoglobin 14.2 crit 44.0 platelets 259,000 neutrophil 65.7% lymphocytes 21.4%, patient also had serum light chain assay done on 04/04/2019 which showed free Light chain 2.06 normal being less than 1.94 and free lambda/kappa ratio 1.08, which is within normal range Prognostic profiling showed beta-2 microglobulin 2.01 IGVH mutated e.g. favorable ZAP/CD19 less than 10% e.g. favorable She still smokes about 1 pack a day Serum protein electrophoresis done on 04/04/2019 showed decreased albumin, slight restriction of protein migration in gamma region recommended immuno fixation electrophoresis Patient denies any night sweats, denies any peripheral lymphadenopathy, denies any weight loss but she has history of recurrent pulmonary infections, requiring hospitalization in the past. Came for follow-up, complaining of generalized weakness and fatigue, and recurrent nosebleed, as per patient she has seen Dr. Jarvis in the past and underwent cauterization which did help her nosebleed but she was very uncomfortable with cauterization and now does not want to go back to him. Patient is on home oxygen which is causing dryness as per patient she did try humidifier with that but did not tolerate. And now with recurrent daily nosebleed and last time was this morning. Denies any melena or hematochezia denies any hemoptysis or hematemesis but sometimes cough up blood mixed mucus. Denies any jaundice denies any night sweats denies any recurrent fever denies any weight loss denies any peripheral lymphadenopathy or abdominal fullness denies any chest pain or shortness of breath at rest Medications: Advair Diskus 1 Puff(s) (of 500-50 mcg/dose) Aerosol Powder, Breath Activated Inhalation b.i.d., Atorvastatin Calcium 2 Tablet (of 40 mg) Oral daily, Atrovent 1 Puff(s) (of 0.03 %) Solution Nasal b.i.d., Breo Ellipta 1 Puff(s) (of 100-25 mcg/inh) Aerosol Powder, Breath Activated Inhalation daily, Breo Ellipta 1 (100-25 mcg/inh) Aerosol Powder, Breath Activated Inhalation PRN, Calcium 3 (250 mg) Capsule Oral daily, Cholecalciferol (25 mcg ) Capsule Oral daily, Doxycycline Hyclate (100 mg) Capsule Oral b.i.d. for 14 days, Flonase 1 (50 mcg/act) Suspension Nasal PRN, Indapamide (1.25 mg) Tablet Oral t.i.d., Indapamide 1 Tablet (of 1.25 mg) Oral daily, Lyrica 1 Capsule (of 150 mg) Oral b.i.d., Nicotrol NS 1 - 2 spray(s) (of 10 mg/mL) Solution Nasal q 1 hour, Omeprazole 1 Capsule (of 20 mg) Capsule Delayed Release Oral daily, oxyCODONE HCl 1 Tablet (of 15 mg) Oral q 8 hours PRN, Primidone 1 Tablet (of 50 mg) Oral daily, Spiriva HandiHaler 1 (18 mcg) Capsule Inhalation daily, Zoloft 1 Tablet (of 50 mg) Oral b.i.d. Allergies: Aleve, Aspirin, Codeine Sulfate, and Penicillins. Review of Systems: Review of Systems is not available for this patient. Vital Signs: Performed on Apr 30, 2021 15:01 Height - 65.00 in Weight - 228.6 lbs (LOW) BSA - 2.09 sq.m BMI - 38.04 (HIGH) Temperature - 98.3 F (LOW) Pulse - 91 /min Respiration - 18 /min BP - 136/79 mm(hg) O2 Sat - 94 % (LOW) Pain - 8 Fatigue - 0 Performance Status: 1 - No physically strenuous activity, but ambulatory and able to carry out light or sedentary work (e.g. office work, light house work). (ECOG) Physical Examination: ENMT - No mouth sores, no thrush, no jaundice, Respiratory - Poor air entry bilateral mild wheezing, Cardiovascular - Regular rate and rhythm of heart, Abdomen - Soft, bowel sounds present, Extremities - No visible edema. Lab/Imaging: Most recent lab results are not available for this patient. 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 absolute lymphocyte count 2300 ?Abnormal serum protein electrophoresis COPD, on home oxygen Recurrent nosebleed, status post cauterization in the past, microcytic anemia probably due to chronic blood loss due to recurrent nosebleed Recurrent pulmonary infection requiring hospitalization on at least 3 occasions in the last one year Chronic smoking Plan: Discussed with patient regarding her labs white blood count 12.9 compared to 19.1 in September 2020 hemoglobin 9.2 g compared to 11.6 g previously hematocrit 33.2 MCV 78.5 compared to 19.8 previously platelets 294,000. CMP within normal limits including LDH Clinically, patient is doing reasonably well now with progressive generalized weakness and fatigue probably due to progressive microcytic hypochromic anemia due to iron deficiency due to chronic recurrent nosebleed due to dryness due to home oxygen. Patient was advised to use modifier or saline nasal spray to keep nasal/sinus area moist and also refer her to ENT for reevaluation regarding cauterization. In the meantime, we will repeat her iron studies and patient was advised to take oral iron 2 tablets p.o. daily and patient return to clinic in 3 weeks with CBC and iron studies As far as CLL is concerned, there is no B symptoms, her white blood count continue to improve, no peripheral lymphadenopathy or organomegaly Signed By: Denis Carlson M.D. <<Signature on File>>
[2021-05-01 14:02] LABS: Ferritin 20 ng/mL (15-150); Iron 28 ug/dL (37-145); Percent Saturation 7.2 % (20-50); Total Iron Binding Capacity 385 mcg/dl; Unsaturated Iron Binding 357 ug/dL (112-347)
[2021-05-01 14:14] LABS: Vitamin B12 632 pg/mL (232-1245)
== END 2021-04-30 13:59 | disposition home or self-care (01) ==
LOC: ONCMED 14:01
PROVIDERS: PCP Nurse Practitioner Family; Visit Provider Internal Medicine Hematology & Oncology
DX: Z08 Encounter for follow-up examination after completed treatment for malignant neoplasm (principal); Z85.6 Personal history of leukemia; D50.0 Iron deficiency anemia secondary to blood loss (chronic); R74.8 Abnormal levels of other serum enzymes; J44.9 Chronic obstructive pulmonary disease, unspecified; Z99.81 Dependence on supplemental oxygen; R04.0 Epistaxis; F17.210 Nicotine dependence, cigarettes, uncomplicated; Z79.899 Other long term (current) drug therapy
CPT/HCPCS: 36415; 80053; 82607; 82728; 83540; 83550; 83615; 85025; 99214

== ENCOUNTER 2021-05-20 11:36 | Outpatient (CLI) | payer MEDICARE, SELFPAY ==
[2021-05-20 12:39] LABS: Basophils # 0.1 10^3/uL (0.0-0.1); Basophils % 0.8 %; Eosinophils # 0.4 10^3/uL (0.0-0.8); Eosinophils % 3.4 %; Hematocrit 34.4 % (37.0-47.0); Hemoglobin 9.8 g/dL (11.5-15.3); Lymphocytes # 3.8 10^3/uL (0.8-4.8); Lymphocytes % 30.3 %; Mean Corpuscular HGB Conc 28.5 g/dL (30.0-36.0); Mean Corpuscular Hemoglobin 22.5 pg (28.0-34.0); Mean Corpuscular Volume 79.1 fl (81-99); Mean Platelet Volume 11.3 fL (7.4-10.4); Monocytes % 7.7 %; Neutrophils # 7.08 10^3/uL (1.8-7.7); Nucleated Red Blood Cells % 0 %; Platelet Count 261 10^3/cmm (130-400); Red Blood Count 4.35 10^6/uL (4.1-5.3); Red Cell Distribution Width 23.3 % (12.1-15.1); White Blood Count 12.4 10^3/uL (4.0-10.0)
[2021-05-20 14:35] LABS: Ferritin 31 ng/mL (15-150); Iron 150 ug/dL (37-145); Percent Saturation 42.6 % (20-50); Total Iron Binding Capacity 352 mcg/dl; Unsaturated Iron Binding 202 ug/dL (112-347)
--- NOTE | 2021-05-24 20:28 | ONC FU_ITS ---
Dr. Carlson follow up note Patient: Sweta Fitzpatrick Unit #: [id number]: [id number] Dicatated By: Denis Carlson M.D.Date of Visit:May 20, 2021 Onc Med Follow-up/Prog Note History of Present Illness: Mrs. 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 As per patient her white blood count stay up mildly that led to special blood test which confirmed CLL. At the time of diagnosis on 04/04/2019 her CBC showed white blood count 10.8 hemoglobin 14.2 crit 44.0 platelets 259,000 neutrophil 65.7% lymphocytes 21.4%, patient also had serum light chain assay done on 04/04/2019 which showed free Light chain 2.06 normal being less than 1.94 and free lambda/kappa ratio 1.08, which is within normal range Prognostic profiling showed beta-2 microglobulin 2.01 IGVH mutated e.g. favorable ZAP/CD19 less than 10% e.g. favorable She still smokes about 1 pack a day Serum protein electrophoresis done on 04/04/2019 showed decreased albumin, slight restriction of protein migration in gamma region recommended immuno fixation electrophoresis Patient denies any night sweats, denies any peripheral lymphadenopathy, denies any weight loss but she has history of recurrent pulmonary infections, requiring hospitalization in the past. Came for follow-up, denies any specific complaint except generalized weakness and fatigue, as per patient still having off and on nosebleed for which she was seen by Dr. Toussaint, ENT on May 07, 2021 his impression was probably due to dryness caused by nasal cannula oxygen and also suggested patient not to use Vicks while on nasal cannula oxygen as it could be potentially source of spontaneous ignition. And recommended her to use saline gel or nasal spray to avoid nasal dryness. Otherwise patient denies any melena or hematochezia denies any hemoptysis or hematemesis, tolerating oral iron with off and on mild nausea or constipation., No night sweats, no recurrent fever, no weight loss, no abdominal fullness, no peripheral lymphadenopathy Medications: Advair Diskus 1 Puff(s) (of 500-50 mcg/dose) Aerosol Powder, Breath Activated Inhalation b.i.d., Atorvastatin Calcium 2 Tablet (of 40 mg) Oral daily, Atrovent 1 Puff(s) (of 0.03 %) Solution Nasal b.i.d., Breo Ellipta 1 Puff(s) (of 100-25 mcg/inh) Aerosol Powder, Breath Activated Inhalation daily, Breo Ellipta 1 (100-25 mcg/inh) Aerosol Powder, Breath Activated Inhalation PRN, Calcium 3 (250 mg) Capsule Oral daily, Cholecalciferol (25 mcg ) Capsule Oral daily, Doxycycline Hyclate (100 mg) Capsule Oral b.i.d. for 14 days, EQL Iron Supplement Therapy 1 Tablet (of 325 mg) Oral daily, Flonase 1 (50 mcg/act) Suspension Nasal PRN, Indapamide (1.25 mg) Tablet Oral t.i.d., Indapamide 1 Tablet (of 1.25 mg) Oral daily, Iron 1 Tablet Oral daily, Lyrica 1 Capsule (of 150 mg) Oral b.i.d., Nicotrol NS 1 - 2 spray(s) (of 10 mg/mL) Solution Nasal q 1 hour, Omeprazole 1 Capsule (of 20 mg) Capsule Delayed Release Oral daily, oxyCODONE HCl 1 Tablet (of 15 mg) Oral q 8 hours PRN, Primidone 1 Tablet (of 50 mg) Oral daily, Spiriva HandiHaler 1 (18 mcg) Capsule Inhalation daily, Zoloft 1 Tablet (of 50 mg) Oral b.i.d. Allergies: Aleve, Aspirin, Codeine Sulfate, and Penicillins. Review of Systems: Review of Systems is not available for this patient. Vital Signs: Performed on May 20, 2021 13:46 Height - 65.00 in Weight - 230.2 lbs (HIGH) BSA - 2.10 sq.m BMI - 38.31 (HIGH) Temperature - 97.8 F (LOW) Pulse - 93 /min Respiration - 18 /min BP - 110/50 mm(hg) O2 Sat - 93 % (LOW) Pain - 9 Fatigue - 8 Performance Status: 1 - No physically strenuous activity, but ambulatory and able to carry out light or sedentary work (e.g. office work, light house work). (ECOG) Physical Examination: ENMT - No mouth sores, no thrush, no jaundice no cervical lymphadenopathy, Respiratory - Poor air entry otherwise clear, Cardiovascular - Regular rate and rhythm of heart, Abdomen - Soft, bowel sounds present, Extremities - Trace edema bilaterally. Lab/Imaging: Most recent lab results are not available for this patient. 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 absolute lymphocyte count 2300 ?Abnormal serum protein electrophoresis COPD, on home oxygen Recurrent nosebleed, status post cauterization in the past, microcytic anemia probably due to chronic blood loss due to recurrent nosebleed Recurrent pulmonary infection requiring hospitalization on at least 3 occasions in the last one year Chronic smoking Plan: Discussed with patient regarding her labs white blood count 12.4 hemoglobin 9.8 g hematocrit 34.4 platelets 261,000 MCV 79.1 Clinically, patient is doing well with no new signs symptoms, no B symptoms, no peripheral lymphadenopathy or abdominal fullness her follow-up labs shows mild leukocytosis/lymphocytosis and persistent iron deficiency anemia, patient is on oral iron tolerating reasonably well with mild GI symptoms, patient is also having off-and-on nosebleed for which she was seen by Dr. Toussaint, ENT who recommended saline nasal spray as her nosebleed could be due to dryness caused by nasal cannula oxygen., At this point we will continue with oral iron she will return to clinic in 1 month with CBC and iron studies if there is no improvement in her iron deficiency anemia, will consider parenteral iron and if there is no improvement may consider capsule endoscopy to rule out small bowel AVMs in addition to off-and-on nosebleed causing iron deficiency anemia As far as early chronic lymphocytic leukemia is concerned, her total white blood cell as well as mild lymphocytosis stable along with her platelet count and no B symptoms, no peripheral lymphadenopathy or organomegaly. With no evidence of hemolytic anemia Signed By: Denis Carlson M.D. <<Signature on File>>
== END 2021-05-20 11:37 | disposition home or self-care (01) ==
PROVIDERS: PCP Nurse Practitioner Family; Visit Provider Internal Medicine Hematology & Oncology
DX: C91.10 Chronic lymphocytic leukemia of B-cell type not having achieved remission (principal); J44.9 Chronic obstructive pulmonary disease, unspecified; D53.9 Nutritional anemia, unspecified; F17.210 Nicotine dependence, cigarettes, uncomplicated; Z79.899 Other long term (current) drug therapy
CPT/HCPCS: 36415; 82728; 83540; 83550; 85025; 99214

== ENCOUNTER → 2021-05-21 08:25 | Outpatient (BNVA) | payer MEDICARE, SELFPAY | PROVIDERS: PCP Nurse Practitioner Family; Visit Provider Anesthesiology | DX: M47.816 Spondylosis without myelopathy or radiculopathy, lumbar region (principal); Z98.1 Arthrodesis status; Z79.891 Long term (current) use of opiate analgesic; Z87.891 Personal history of nicotine dependence | CPT/HCPCS: 62323; J1040; J3490 ==

== ENCOUNTER 2021-06-26 07:55 | Outpatient (CLI) | payer MEDICARE, SELFPAY ==
[2021-06-26 10:44] LABS: Basophils # 0.1 10^3/uL (0.0-0.1); Basophils % 0.7 %; Eosinophils # 0.8 10^3/uL (0.0-0.8); Eosinophils % 5.7 %; Hemoglobin 10.5 g/dL (11.5-15.3); Lymphocytes # 3.6 10^3/uL (0.8-4.8); Lymphocytes % 26.4 %; Mean Corpuscular HGB Conc 29.2 g/dL (30.0-36.0); Mean Corpuscular Hemoglobin 23.8 pg (28.0-34.0); Mean Corpuscular Volume 81.6 fl (81-99); Mean Platelet Volume 10.3 fL (7.4-10.4); Monocytes % 7.6 %; Neutrophils # 8.09 10^3/uL (1.8-7.7); Neutrophils % 58.7 %; Nucleated Red Blood Cells % 0 %; Platelet Count 292 10^3/cmm (130-400); Red Blood Count 4.41 10^6/uL (4.1-5.3); Red Cell Distribution Width 20.3 % (12.1-15.1); White Blood Count 13.8 10^3/uL (4.0-10.0)
[2021-06-26 11:09] LABS: Ferritin 137 ng/mL (15-150); Iron 51 ug/dL (37-145); Percent Saturation 15.2 % (20-50); Total Iron Binding Capacity 335 mcg/dl; Unsaturated Iron Binding 284 ug/dL (112-347)
--- NOTE | 2021-06-26 11:25 | ONC FU_ITS ---
Dr. Carlson follow up note Patient: Sweta Fitzpatrick Unit #: [id number]: [id number] Dicatated By: Denis Carlson M.D.Date of Visit:Jun 26, 2021 Onc Med Follow-up/Prog Note History of Present Illness: Mrs. Sweta fitzpatrick, is a 70-year-old female with history of COPD on home oxygen was incidentally found to have chronic lymphocytic leukemia per flow cytometry done on 04/04/2019. As per patient her white blood count stay up mildly that led to special blood test which confirmed CLL. At the time of diagnosis on 04/04/2019 her CBC showed white blood count 10.8 hemoglobin 14.2 crit 44.0 platelets 259,000 neutrophil 65.7% lymphocytes 21.4%, patient also had serum light chain assay done on 04/04/2019 which showed free Light chain 2.06 normal being less than 1.94 and free lambda/kappa ratio 1.08, which is within normal range Prognostic profiling showed beta-2 microglobulin 2.01 IGVH mutated e.g. favorable ZAP/CD19 less than 10% e.g. favorable She still smokes about 1 pack a day Serum protein electrophoresis done on 04/04/2019 showed decreased albumin, slight restriction of protein migration in gamma region recommended immuno fixation electrophoresis Patient denies any night sweats, denies any peripheral lymphadenopathy, denies any weight loss but she has history of recurrent pulmonary infections, requiring hospitalization in the past. Came for follow-up, denies any specific complaint except discomfort in left chest wall, as per patient last week while she was throwing up she was leaning forward against something and hurt her left chest wall, now use ice pack and is helping her, denies any shortness of breath or palpitation denies any pain radiating to left arm, pain is reproducible by palpating left chest wall or raising her arm but no overlying skin changes or bruise. Patient said her vomiting was self-limiting, denies eating out. Denies any hemoptysis or hematemesis denies any nosebleed or gum bleed or hemoptysis, denies any melena or hematochezia but dark-colored stools due to oral iron, she takes 3 tablets of ferrous sulfate., Denies night sweats, denies any recurrent fever or weight loss. Medications: Advair Diskus 1 Puff(s) (of 500-50 mcg/dose) Aerosol Powder, Breath Activated Inhalation b.i.d., Atorvastatin Calcium 2 Tablet (of 40 mg) Oral daily, Atrovent 1 Puff(s) (of 0.03 %) Solution Nasal b.i.d., Breo Ellipta 1 Puff(s) (of 100-25 mcg/inh) Aerosol Powder, Breath Activated Inhalation daily, Breo Ellipta 1 (100-25 mcg/inh) Aerosol Powder, Breath Activated Inhalation PRN, Calcium 3 (250 mg) Capsule Oral daily, Cholecalciferol (25 mcg ) Capsule Oral daily, Doxycycline Hyclate (100 mg) Capsule Oral b.i.d. for 14 days, EQL Iron Supplement Therapy 1 Tablet (of 325 mg) Oral daily, Flonase 1 (50 mcg/act) Suspension Nasal PRN, Indapamide (1.25 mg) Tablet Oral t.i.d., Indapamide 1 Tablet (of 1.25 mg) Oral daily, Iron 1 Tablet Oral daily, Lyrica 1 Capsule (of 150 mg) Oral b.i.d., Nicotrol NS 1 - 2 spray(s) (of 10 mg/mL) Solution Nasal q 1 hour, Omeprazole 1 Capsule (of 20 mg) Capsule Delayed Release Oral daily, oxyCODONE HCl 1 Tablet (of 15 mg) Oral q 8 hours PRN, Primidone 1 Tablet (of 50 mg) Oral daily, Spiriva HandiHaler 1 (18 mcg) Capsule Inhalation daily, Zoloft 1 Tablet (of 50 mg) Oral b.i.d. Allergies: Aleve, Aspirin, Codeine Sulfate, and Penicillins. Review of Systems: Review of Systems is not available for this patient. Vital Signs: Vitals are not available for this patient. Performance Status: 1 - No physically strenuous activity, but ambulatory and able to carry out light or sedentary work (e.g. office work, light house work). (ECOG) Physical Examination: ENMT - No mouth sores, no thrush, no jaundice, no cervical lymphadenopathy, Respiratory - Poor air entry otherwise clear, Cardiovascular - Regular rate and rhythm of heart, Abdomen - Soft, bowel sounds present, Extremities - No visible edema. Lab/Imaging: Most recent lab results are not available for this patient. 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 absolute lymphocyte count 2300 ?Abnormal serum protein electrophoresis COPD, on home oxygen Recurrent nosebleed, status post cauterization in the past, microcytic anemia probably due to chronic blood loss due to recurrent nosebleed Recurrent pulmonary infection requiring hospitalization on at least 3 occasions in the last one year Chronic smoking Plan: Discussed with patient regarding her concern and question, her lab including CBC and iron studies pending, patient gave specimen for lab testing this morning but somehow chemical processing laborer informed us they lost the specimen so it was redrawn and now is pending. Discussed with patient and she was advised to continue with oral iron and we will review her lab work-up when available, if she has persistent iron deficiency despite of maximum oral dose of iron, will consider parenteral iron with Injectafer 750 mg IV weekly x2 and also consider further work-up with capsule endoscopy to rule out small bowel AVM. On the other hand if her hemoglobin improves along with iron stores, will continue same and she will return to clinic in 1 month with CBC and iron studies. As far as CLL is concerned, patient has no B symptoms and no evidence of peripheral lymphadenopathy, will continue to monitor Signed By: Denis Carlson M.D. <<Signature on File>>
[2021-06-26 11:34] LABS: Ferritin 135 ng/mL (15-150); Iron 58 ug/dL (37-145); Percent Saturation 17.4 % (20-50); Total Iron Binding Capacity 333 mcg/dl; Unsaturated Iron Binding 275 ug/dL (112-347)
== END 2021-06-26 07:56 | disposition home or self-care (01) ==
LOC: ONCMED 07:59
PROVIDERS: PCP Nurse Practitioner Family; Visit Provider Internal Medicine Hematology & Oncology
DX: C91.11 Chronic lymphocytic leukemia of B-cell type in remission (principal); J44.9 Chronic obstructive pulmonary disease, unspecified; D50.9 Iron deficiency anemia, unspecified
CPT/HCPCS: 36415; 82728; 83540; 83550; 85025; 99214

== ENCOUNTER → 2021-07-03 09:55 | Outpatient (BNVA) | payer MEDICARE, SELFPAY | PROVIDERS: PCP Nurse Practitioner Family; Visit Provider Anesthesiology | DX: M47.816 Spondylosis without myelopathy or radiculopathy, lumbar region (principal); M17.11 Unilateral primary osteoarthritis, right knee; Z87.891 Personal history of nicotine dependence; Z98.1 Arthrodesis status; Z79.891 Long term (current) use of opiate analgesic | CPT/HCPCS: 99213 ==